=== PATIENT | male | born 1970 | race Caucasian/White ===

== ENCOUNTER 2019-01-03 22:48 | Emergency (ER) | payer SELFPAY ==
[2019-01-03] MEDS ORDERED: PEPCID PO ONE (23:29)
[2019-01-03] MEDS ORDERED: REGLAN PO ONE (23:29)
--- NOTE | 2019-01-03 23:31 | Emergency Department Report ---
ED General Adult HPI - General Chief complaint: Nausea/Vomiting/Diarrhea Stated complaint: POSS SEIZURE/VOMITING Time Seen by Provider: 01/03/19 23:10 Source: patient, EMS, RN notes reviewed Mode of arrival: Ambulatory Limitations: Other (patient is a poor historian) - History of Present Illness Initial comments: This is a 48-year-old gentleman, who reports a history of traumatic brain injury, blind in the right eye, possible seizure, who believes that he takes phenytoin, but is not certain. He is brought to the hospital today by emergency medical services for sensation of breaking that he will have a seizure, and sensation of nausea. The patient indicates that he believes his symptoms started today. He is currently not having a severe headache, he has no neck pain, no chest pain, positive cough, abdominal cramping, positive nausea, reports dysuria, with no focal extremity weakness, numbness. The patient cannot recall medications he takes otherwise, and has a difficult time describing exacerbating or relieving factors. He apparently lives at a personal nursing home. No family, friends available for collateral information at this time. The personal nursing home was contacted 3 times by nursing staff, but nobody answered the phone. -: This evening Location: head, abdomen Quality: other Consistency: other Improves with: other - Related Data Previous Rx's Medication Instructions Recorded Last Taken Type Nitrofurantoin [place]/M-Cryst 100 mg PO Q12HR #14 capsule 01/04/19 Unknown Rx [Macrobid CAP] Allergies Allergy/AdvReac Type Severity Reaction Status Date / Time No Known Allergies Allergy Unverified 01/03/19 22:59 ED Review of Systems ROS: Stated complaint: POSS SEIZURE/VOMITING Other details as noted in HPI Comment: Unobtainable due to pts medical conditions (patient is a poor historian) Constitutional: malaise. denies: fever Eyes: denies: eye discharge ENT: denies: epistaxis Respiratory: cough Cardiovascular: denies: chest pain Gastrointestinal: abdominal pain, nausea Genitourinary: dysuria Musculoskeletal: denies: arthralgia Skin: denies: lesions Neurological: other (sensation like the patient will have a seizure) ED Past Medical Hx - Past Medical History Previous Medical History?: Yes Hx CVA: Yes (right sided weakness) Hx Diabetes: Yes Hx Seizures: Yes - Surgical History Past Surgical History?: Yes Additional Surgical History: head surgery - Social History Smoking Status: Current Some Day Smoker Substance Use Type: Alcohol - Medications Home Medications: Home Medications Medication Instructions Recorded Confirmed Last Taken Type Nitrofurantoin [place]/M-Cryst 100 mg PO Q12HR #14 capsule 01/04/19 Unknown Rx [Macrobid CAP] ED Physical Exam - General Limitations: Other (patient is a poor historian. Questionable developmental delay versus posttraumatic cognitive deficits) General appearance: alert, in no apparent distress - Head Head exam: Present: other (no acute traumatic injuries noted. Chronic-appearing deformities, consistent with remote history of traumatic brain injury) - Eye Eye exam: Present: PERRL, other (visual acuity intact to finger counting, color perception, reading at a close distance; left eye) - ENT ENT exam: Present: normal exam, normal orophraynx, mucous membranes moist, normal external ear exam - Neck Neck exam: Present: normal inspection, full ROM. Absent: tenderness, meningismus - Respiratory Respiratory exam: Present: normal lung sounds bilaterally. Absent: respiratory distress, wheezes, rales, rhonchi, stridor - Cardiovascular Cardiovascular Exam: Present: regular rate, normal rhythm, normal heart sounds. Absent: bradycardia, tachycardia, systolic murmur, diastolic murmur, rubs, gallop - GI/Abdominal GI/Abdominal exam: Present: soft. Absent: distended, tenderness, guarding, rebound, pulsatile mass - Rectal Rectal exam: Present: deferred - Extremities Exam Extremities exam: Present: normal inspection, full ROM, normal capillary refill, other (2+ pulses noted in the bilateral upper, lower extremities. Compartments soft. No long bony tenderness. The pelvis is stable.). Absent: calf tenderness - Back Exam Back exam: Present: normal inspection, full ROM. Absent: tenderness, CVA tenderness (R), paraspinal tenderness, vertebral tenderness - Neurological Exam Neurological exam: Present: alert, normal gait, other (Extraocular movements intact. Tongue midline. No facial droop. Facial sensation intact to light touch in the V1, V2, V3 distribution bilaterally. 5 and 5 strength in 4 extremities.. Sensation is intact to light touch in 4 extremities.). Absent: motor sensory deficit - Skin Skin exam: Present: warm, dry, intact, normal color. Absent: rash ED Course Vital Signs 01/03/19 01/04/19 01/04/19 22:59 00:00 01:00 Temperature 98.2 F Pulse Rate 83 89 70 Respiratory 20 13 14 Rate Blood Pressure 132/72 129/69 131/79 Blood Pressure 132/72 [Left] O2 Sat by Pulse 99 95 95 Oximetry 01/04/19 02:00 Temperature Pulse Rate 78 Respiratory 12 Rate Blood Pressure 131/79 Blood Pressure [Left] O2 Sat by Pulse 97 Oximetry ED Medical Decision Making - Lab Data Result diagrams: 01/03/19 23:34 01/03/19 23:34 Vital Signs 01/03/19 01/04/19 01/04/19 22:59 00:00 01:00 Temperature 98.2 F Pulse Rate 83 89 70 Respiratory 20 13 14 Rate Blood Pressure 132/72 129/69 131/79 Blood Pressure 132/72 [Left] O2 Sat by Pulse 99 95 95 Oximetry Lab Results 01/03/19 01/03/19 01/03/19 Range/Units 23:34 23:34 23:34 WBC 13.5 H (4.5-11.0) K/mm3 RBC 4.88 (3.65-5.03) M/mm3 Hgb 15.9 H (11.8-15.2) gm/dl Hct 45.0 (35.5-45.6) % MCV 92 (84-94) fl MCH 33 H (28-32) pg MCHC 35 H (32-34) % RDW 13.0 L (13.2-15.2) % Plt Count 350 (140-440) K/mm3 Sodium 136 L (137-145) mmol/L Potassium 4.1 (3.6-5.0) mmol/L Chloride 98.4 (98-107) mmol/L Carbon Dioxide 29 (22-30) mmol/L Anion Gap 13 mmol/L BUN 14 (9-20) mg/dL Creatinine 0.6 L (0.8-1.5) mg/dL Estimated GFR > 60 ml/min BUN/Creatinine Ratio 23 % Glucose 126 H (75-100) mg/dL Calcium 8.8 (8.4-10.2) mg/dL Total Bilirubin 0.30 (0.1-1.2) mg/dL Direct Bilirubin < 0.2 (0-0.2) mg/dL Indirect Bilirubin 0.1 mg/dL AST 24 (5-40) units/L ALT 27 (7-56) units/L Alkaline Phosphatase 127 (35-129) units/L Total Creatine Kinase 448 H (55-170) units/L Total Protein 7.4 (6.3-8.2) g/dL Albumin 4.3 (3.9-5) g/dL Albumin/Globulin Ratio 1.4 % Lipase 19 (13-60) units/L Urine Color (Yellow) Urine Turbidity (Clear) Urine pH (5.0-7.0) Ur Specific [place] (1.003-1.030) Urine Protein (Negative) mg/dL Urine Glucose (UA) (Negative) mg/dL Urine Ketones (Negative) mg/dL Urine Blood (Negative) Urine Nitrite (Negative) Urine Bilirubin (Negative) Urine Urobilinogen (<2.0) mg/dL Ur Leukocyte Esterase (Negative) Urine WBC (Auto) (0.0-6.0) /HPF Urine RBC (Auto) (0.0-6.0) /HPF U Epithel Cells (Auto) (0-13.0) /HPF Urine Bacteria (Auto) (Negative) /HPF Urine Mucus /HPF Salicylates (2.8-20.0) mg/dL Acetaminophen (10.0-30.0) ug/mL Phenytoin (10.0-20.0) ug/mL Valproic Acid (50-100) ug/mL Plasma/Serum Alcohol (0-0.07) % 01/03/19 01/03/19 01/03/19 Range/Units 23:34 23:34 23:34 WBC (4.5-11.0) K/mm3 RBC (3.65-5.03) M/mm3 Hgb (11.8-15.2) gm/dl Hct (35.5-45.6) % MCV (84-94) fl MCH (28-32) pg MCHC (32-34) % RDW (13.2-15.2) % Plt Count (140-440) K/mm3 Sodium (137-145) mmol/L Potassium (3.6-5.0) mmol/L Chloride (98-107) mmol/L Carbon Dioxide (22-30) mmol/L Anion Gap mmol/L BUN (9-20) mg/dL Creatinine (0.8-1.5) mg/dL Estimated GFR ml/min BUN/Creatinine Ratio % Glucose (75-100) mg/dL Calcium (8.4-10.2) mg/dL Total Bilirubin (0.1-1.2) mg/dL Direct Bilirubin (0-0.2) mg/dL Indirect Bilirubin mg/dL AST (5-40) units/L ALT (7-56) units/L Alkaline Phosphatase (35-129) units/L Total Creatine Kinase (55-170) units/L Total Protein (6.3-8.2) g/dL Albumin (3.9-5) g/dL Albumin/Globulin Ratio % Lipase (13-60) units/L Urine Color (Yellow) Urine Turbidity (Clear) Urine pH (5.0-7.0) Ur Specific [place] (1.003-1.030) Urine Protein (Negative) mg/dL Urine Glucose (UA) (Negative) mg/dL Urine Ketones (Negative) mg/dL Urine Blood (Negative) Urine Nitrite (Negative) Urine Bilirubin (Negative) Urine Urobilinogen (<2.0) mg/dL Ur Leukocyte Esterase (Negative) Urine WBC (Auto) (0.0-6.0) /HPF Urine RBC (Auto) (0.0-6.0) /HPF U Epithel Cells (Auto) (0-13.0) /HPF Urine Bacteria (Auto) (Negative) /HPF Urine Mucus /HPF Salicylates < 0.3 L (2.8-20.0) mg/dL Acetaminophen < 5.0 L (10.0-30.0) ug/mL Phenytoin 9.8 L (10.0-20.0) ug/mL Valproic Acid < 2.8 L (50-100) ug/mL Plasma/Serum Alcohol 0.18 H (0-0.07) % 01/04/19 Range/Units 00:15 WBC (4.5-11.0) K/mm3 RBC (3.65-5.03) M/mm3 Hgb (11.8-15.2) gm/dl Hct (35.5-45.6) % MCV (84-94) fl MCH (28-32) pg MCHC (32-34) % RDW (13.2-15.2) % Plt Count (140-440) K/mm3 Sodium (137-145) mmol/L Potassium (3.6-5.0) mmol/L Chloride (98-107) mmol/L Carbon Dioxide (22-30) mmol/L Anion Gap mmol/L BUN (9-20) mg/dL Creatinine (0.8-1.5) mg/dL Estimated GFR ml/min BUN/Creatinine Ratio % Glucose (75-100) mg/dL Calcium (8.4-10.2) mg/dL Total Bilirubin (0.1-1.2) mg/dL Direct Bilirubin (0-0.2) mg/dL Indirect Bilirubin mg/dL AST (5-40) units/L ALT (7-56) units/L Alkaline Phosphatase (35-129) units/L Total Creatine Kinase (55-170) units/L Total Protein (6.3-8.2) g/dL Albumin (3.9-5) g/dL Albumin/Globulin Ratio % Lipase (13-60) units/L Urine Color Yellow (Yellow) Urine Turbidity Clear (Clear) Urine pH 6.0 (5.0-7.0) Ur Specific [place] 1.023 (1.003-1.030) Urine Protein 30 mg/dl (Negative) mg/dL Urine Glucose (UA) Neg (Negative) mg/dL Urine Ketones Neg (Negative) mg/dL Urine Blood Mod (Negative) Urine Nitrite Neg (Negative) Urine Bilirubin Neg (Negative) Urine Urobilinogen < 2.0 (<2.0) mg/dL Ur Leukocyte Esterase Lg (Negative) Urine WBC (Auto) 10.0 H (0.0-6.0) /HPF Urine RBC (Auto) 39.0 (0.0-6.0) /HPF U Epithel Cells (Auto) 1.0 (0-13.0) /HPF Urine Bacteria (Auto) 1+ (Negative) /HPF Urine Mucus Few /HPF Salicylates (2.8-20.0) mg/dL Acetaminophen (10.0-30.0) ug/mL Phenytoin (10.0-20.0) ug/mL Valproic Acid (50-100) ug/mL Plasma/Serum Alcohol (0-0.07) % - EKG Data -: EKG Interpreted by Sd EKG shows normal: sinus rhythm, axis, intervals, QRS complexes, ST-T waves - EKG Data When compared to previous EKG there are: previous EKG unavailable 01/04/19 01:55 Sinus, 73 bpm, normal axis, normal pulse, not consistent with ST elevation myocardial infarction, there is no prior EKG available for comparison. - Radiology Data Radiology results: report reviewed, image reviewed Noncontrast CT scan of the brain is negative for acute disease. Chronic findings noted. X-ray the chest is negative for acute disease. Noncontrast CT scan of the abdomen pelvis negative for acute disease. - Medical Decision Making Differential diagnosis, including but not limited to: Medication noncompliance, subtherapeutic antiepileptic drug level, pneumonia, urinary tract infection Assessment and plan: 48-year-old gentleman who is a poor historian who reports nausea, reports dysuria, and he reports possible seizure. The patient is afebrile with reassuring vital signs, and not currently in any distress. He walks with a steady gait, his abdominal exam is benign, his pulmonary exam is benign, and x-ray of the chest was negative for acute disease. Noncontrast CT scan of the brain was negative for acute disease. The patient is observed in the emergency room for hours without clinical decompensation, active vomiting, or convulsive event or seizure. We tried multiple times to contact his care facility, but nobody answered the phone. He may have a slowly subtherapeutic phenytoin level. He was given oral phenytoin. He does not appear to have an emergent medical condition at this time. He will need to follow with a primary care doctor or neurologist to address his urinalysis, and presumed subtherapeutic antiepileptic drug level. Since we do not know what dose he takes, it is difficult to make a recommendation on a prescription. He does not know what pharmacy he gets his prescriptions from. He will be covered with Macrobid empirically. Critical care attestation.: If time is entered above; I have spent that time in minutes in the direct care of this critically ill patient, excluding procedure time. ED Disposition Clinical Impression: History of seizure Disposition: DC-01 TO HOME OR SELFCARE Is pt being admited?: No Does the pt Need Aspirin: No Condition: Stable Additional Instructions: Do not drive or operate motor vehicles for the next 6 months. Take the Macrobid antibiotic as directed. Follow up with the primary care doctor or neurology doctor within the next 3-7 days, and bring a complete list of patient's's with the patient, so that the provider may make informed recommendations on medications, doses, and adjustments if necessary. Please return to the ER right away with new, worsening or different symptoms. Referrals: [facility] [Provider Group] - 3-5 Days HOWARD TORRES MD [Referring] - 3-5 Days AGATHA SHEARER MD [Staff Physician] - 3-5 Days MARIAM HUGGINS MD [Staff Physician] - 3-5 Days
[2019-01-03 23:53] LABS: Hemoglobin 15.9 gm/dl (11.8-15.2); Mean Corpuscular HGB Conc 35 % (32-34); Mean Corpuscular Volume 92 fl (84-94); Platelet Count 350 K/mm3 (140-440); Red Blood Count 4.88 M/mm3 (3.65-5.03)
--- NOTE | 2019-01-03 23:55 | XRay Report ---
FINAL REPORT EXAM: XR CHEST 1V AP HISTORY: sz cough TECHNIQUE: upright single view chest PRIORS: None. FINDINGS: Cardiac and mediastinal contours are unremarkable. No focal pulmonary infiltrate is identified. No pleural fluid collection seen. Pulmonary vasculature is unremarkable. IMPRESSION: Negative single-view chest
[2019-01-04 00:09] LABS: BUN/Creatinine Ratio 23; Blood Urea Nitrogen 14 mg/dL (9-20); Calcium 8.8 mg/dL (8.4-10.2); Hemolysis Index 5
[2019-01-04 00:13] LABS: Alanine Aminotransferase 27 units/L (7-56); Albumin 4.3 g/dL (3.9-5)
[2019-01-04 00:16] LABS: Bilirubin,Direct < 0.2 mg/dL (0-0.2)
[2019-01-04] MEDS ORDERED: DILANTIN PO ONE (00:21)
[2019-01-04 00:32] LABS: Bacteria,Urine 1+ /HPF (Negative); Bilirubin,Urine NEG (Negative); Blood,Urine MOD (Negative); Color,Urine Yellow (Yellow); Mucus,Urine FEW /HPF; Urobilinogen,Urine < 2.0 mg/dL (<2.0)
--- NOTE | 2019-01-04 01:02 | Cat Scan Report ---
FINAL REPORT EXAM: CT HEAD/BRAIN WO CON HISTORY: Seizure, headache. History of TBI. OD Blind. TECHNIQUE: Non-contrast CT brain. MPR. Overall image quality is satisfactory. PRIORS: None. FINDINGS: COMMENTS: BONE - Soft tissues: Mild bifrontal supraorbital soft tissue swelling. Calvarium: Right-sided frontoparietal craniectomy changes are present. Temporal mastoids: No effusion Included paranasal sinuses: Well aerated and without air-fluid levels. Intracranial vascular calcifications. CSF SPACES - Ventricles: Right greater than left ex vacuo dilatation of the ventricles. Subarachnoid spaces: Prominent. BRAIN - There is marked right greater than left frontal lobe gliosis/volume loss suggestive of prior trauma o r infarction. No acute intracranial bleed, large vessel territory infarct or mass. IMPRESSION: 1. No acute intracranial pathology. 2. Postsurgical changes from prior right frontoparietal craniectomy with severe gliosis/volume loss w ithin the right greater than left frontal lobe white matter and concomitant enlargement of the latera l ventricles. RECOMMENDATION: if concern for acute ischemia, diffusion weighted imaging of the brain can further ev aluate.
[2019-01-04 01:07] VITALS: BP 131/79
--- NOTE | 2019-01-04 01:10 | Cat Scan Report ---
FINAL REPORT EXAM: CT ABDOMEN PELVIS WO CON HISTORY: Abdominal pain with nausea and vomiting. TECHNIQUE: CT evaluation performed of the abdomen and pelvis without IV or oral contrast administrat ion. Coronal and sagittal imaging also provided for interpretation. PRIORS: None. FINDINGS: Lower thorax: The lung bases are clear. The visualized portions of the heart are normal. Liver: No focal lesions identified of the liver. No intrahepatic biliary ductal dilation. Gallbladder/ biliary system: No cholelithiasis. No extrahepatic biliary ductal dilation. Spleen: No splenic lesions are seen. Pancreas: No pancreatic lesions are seen. No pancreatic duct dilation. Kidneys: No hydronephrosis. No ureteral or renal calcifications. Adrenal glands: No adrenal masses. Vasculature: Mild atherosclerotic vascular calcifications in the aortoiliac system. Bowel, mesentery, peritoneum: No bowel obstruction. Mild colonic diverticulosis. The appendix is norm al. No free intra-abdominal fluid or air. Urinary bladder: No calculi or wall thickening. Pelvis: Normal anatomy is noted. No masses. Abdominal wall: Small bilateral fat containing inguinal hernias. Marked atrophy of the left gluteus m edius and right gluteus minimus musculature. Bones: No acute osseous abnormality. There is bilateral spondylolysis at L5 with grade 1 spondylolist hesis. Vertebral body heights are maintained. Multilevel endplate degenerative changes are present. T here is moderate neural foraminal narrowing at L5-S1 bilaterally. IMPRESSION: No noncontrast CT evidence of acute abdominopelvic process. Chronic findings as itemized above.
== END 2019-01-04 03:22 | disposition home or self-care (01) ==
LOC: ED 22:48
DX: R56.9 Unspecified convulsions (principal); E11.9 Type 2 diabetes mellitus without complications; F17.200 Nicotine dependence, unspecified, uncomplicated; R10.9 Unspecified abdominal pain
CPT/HCPCS: 36415; 70450; 71045; 74176; 80048; 80076; 80164; 80185; 81001; 82550; 83690; 85027; 93005; 93010; 99285; G0480; 80320

== ENCOUNTER 2019-10-15 05:19 | Inpatient (IN) | payer MEDICAID ==
[2019-10-15] MEDS ORDERED: levETIRAcetam 1000 MG/NS 0.75% 1,000 MG/100 ML BAG IV ONE (05:29)
[2019-10-15] MEDS ORDERED: LORazepam 2 MG/ML VIAL IV ONE ×4 (05:29→10:21)
--- NOTE | 2019-10-15 05:32 | Emergency Department Report ---
Blank Doc - Documentation Documentation: 49-year-old male with a past medical history of seizures from [place] with p resentation for seizures. Someone at the facility heard patient fall and found him on the ground in the closet postictal. He was removed from the closet then had a second seizure. He had a third seizure in route and a fourth seizure after arrival to the ED. Patient has remained post ictal. No meds given in route. Patient has Keppra pill bottles at the scene. Accu-Chek in the 160s as per EMS. Labs ordered including IV access, monitor, supplemental oxygen when necessary. Patient treated in the ED with Ativan 1 mg and IV Keppra ordered. CT head and cervical spine pending. Patient to be seen by further by oncoming provider.
--- NOTE | 2019-10-15 06:15 | Emergency Department Report ---
ED General Adult HPI - General Stated complaint: SEZURE Time Seen by Provider: 10/15/19 05:45 - History of Present Illness Initial comments: The patient presents to the emergency department via EMS from [place] for seizure activity. Patient has a history of seizures and takes Dilantin. This morning the patient was found in a closet seizing and continued to have seizures in route to the hospital. Reportedly the patient had multiple scrapes to the head from a seizure activity. The patient arrived having seizure activity as well. -: Sudden Location: head Improves with: none Worsens with: none Associated Symptoms: denies other symptoms Treatments Prior to Arrival: none - Related Data Home Medications Medication Instructions Recorded Confirmed Last Taken Phenytoin Sodium Extended 200 mg PO 10/15/19 Unknown Sertraline HCl [Zoloft] 50 mg PO 10/15/19 Unknown Allergies Allergy/AdvReac Type Severity Reaction Status Date / Time No Known Allergies Allergy Unverified 01/03/19 22:59 ED Review of Systems ROS: Stated complaint: SEZURE Other details as noted in HPI Comment: Unobtainable due to pts medical conditions ED Past Medical Hx - Past Medical History Hx CVA: Yes (right sided weakness) Hx Diabetes: Yes Hx Seizures: Yes - Surgical History Additional Surgical History: head surgery - Social History Smoking Status: Current Some Day Smoker Substance Use Type: Alcohol - Medications Home Medications: Home Medications Medication Instructions Recorded Confirmed Last Taken Type Phenytoin Sodium Extended 200 mg PO 10/15/19 Unknown History Sertraline HCl [Zoloft] 50 mg PO 10/15/19 Unknown History ED Physical Exam - General General appearance: obtunded, other (seizing) - Head Head exam: Present: other (bruising and ecchymosis) - Eye Eye exam: Present: normal appearance, PERRL, EOMI - ENT ENT exam: Present: mucous membranes dry - Neck Neck exam: Present: normal inspection - Respiratory Respiratory exam: Present: normal lung sounds bilaterally. Absent: respiratory distress, wheezes, rales - Cardiovascular Cardiovascular Exam: Present: normal rhythm, tachycardia - GI/Abdominal GI/Abdominal exam: Present: soft, normal bowel sounds. Absent: distended, tenderness - Extremities Exam Extremities exam: Present: normal inspection - Back Exam Back exam: Present: normal inspection - Neurological Exam Neurological exam: Present: other (actively seizing) - Psychiatric Psychiatric exam: Present: other (not able to assess secondary to patient's condition ) - Skin Skin exam: Present: other (not able to assess due to patient's condition) ED Course Vital Signs 10/15/19 10/15/19 10/15/19 05:26 05:30 05:46 Temperature Temperature [ Intra-Procedure ] Temperature [ Post-Procedure] Temperature [ Pre-Procedure] Pulse Rate 125 H 128 H Pulse Rate [ Intra-Procedure ] Pulse Rate [ Post-Procedure] Pulse Rate [Pre -Procedure] Respiratory 21 19 Rate Respiratory Rate [Intra- Procedure] Respiratory Rate [Post- Procedure] Respiratory Rate [Pre- Procedure] Blood Pressure 176/82 176/82 Blood Pressure [Intra- Procedure] Blood Pressure [Post-Procedure ] Blood Pressure [Pre-Procedure] Blood Pressure [Right] O2 Sat by Pulse 79 L 98 96 Oximetry O2 Sat by Pulse Oximetry [ Intra-Procedure ] O2 Sat by Pulse Oximetry [Post -Procedure] O2 Sat by Pulse Oximetry [Pre- Procedure] 10/15/19 10/15/19 10/15/19 06:00 06:21 06:30 Temperature 99.6 F Temperature [ Intra-Procedure ] Temperature [ Post-Procedure] Temperature [ Pre-Procedure] Pulse Rate 120 H 113 H 115 H Pulse Rate [ Intra-Procedure ] Pulse Rate [ Post-Procedure] Pulse Rate [Pre -Procedure] Respiratory 18 15 16 Rate Respiratory Rate [Intra- Procedure] Respiratory Rate [Post- Procedure] Respiratory Rate [Pre- Procedure] Blood Pressure 140/81 Blood Pressure [Intra- Procedure] Blood Pressure [Post-Procedure ] Blood Pressure [Pre-Procedure] Blood Pressure 151/102 [Right] O2 Sat by Pulse 100 100 100 Oximetry O2 Sat by Pulse Oximetry [ Intra-Procedure ] O2 Sat by Pulse Oximetry [Post -Procedure] O2 Sat by Pulse Oximetry [Pre- Procedure] 10/15/19 10/15/19 10/15/19 06:31 06:45 07:00 Temperature Temperature [ Intra-Procedure ] Temperature [ Post-Procedure] Temperature [ Pre-Procedure] Pulse Rate 117 H 115 H 116 H Pulse Rate [ Intra-Procedure ] Pulse Rate [ Post-Procedure] Pulse Rate [Pre -Procedure] Respiratory 16 18 18 Rate Respiratory Rate [Intra- Procedure] Respiratory Rate [Post- Procedure] Respiratory Rate [Pre- Procedure] Blood Pressure 151/102 153/102 146/102 Blood Pressure [Intra- Procedure] Blood Pressure [Post-Procedure ] Blood Pressure [Pre-Procedure] Blood Pressure [Right] O2 Sat by Pulse 100 100 100 Oximetry O2 Sat by Pulse Oximetry [ Intra-Procedure ] O2 Sat by Pulse Oximetry [Post -Procedure] O2 Sat by Pulse Oximetry [Pre- Procedure] 10/15/19 10/15/19 10/15/19 07:15 07:31 07:45 Temperature Temperature [ Intra-Procedure ] Temperature [ Post-Procedure] Temperature [ Pre-Procedure] Pulse Rate 119 H 113 H 118 H Pulse Rate [ Intra-Procedure ] Pulse Rate [ Post-Procedure] Pulse Rate [Pre -Procedure] Respiratory 19 15 21 Rate Respiratory Rate [Intra- Procedure] Respiratory Rate [Post- Procedure] Respiratory Rate [Pre- Procedure] Blood Pressure 158/106 158/106 158/106 Blood Pressure [Intra- Procedure] Blood Pressure [Post-Procedure ] Blood Pressure [Pre-Procedure] Blood Pressure [Right] O2 Sat by Pulse 100 100 98 Oximetry O2 Sat by Pulse Oximetry [ Intra-Procedure ] O2 Sat by Pulse Oximetry [Post -Procedure] O2 Sat by Pulse Oximetry [Pre- Procedure] 10/15/19 10/15/19 10/15/19 08:00 08:04 08:06 Temperature 102.8 F H Temperature [ Intra-Procedure ] Temperature [ Post-Procedure] Temperature [ Pre-Procedure] Pulse Rate 115 H Pulse Rate [ Intra-Procedure ] Pulse Rate [ Post-Procedure] Pulse Rate [Pre -Procedure] Respiratory 19 16 Rate Respiratory Rate [Intra- Procedure] Respiratory Rate [Post- Procedure] Respiratory Rate [Pre- Procedure] Blood Pressure 165/107 Blood Pressure [Intra- Procedure] Blood Pressure [Post-Procedure ] Blood Pressure [Pre-Procedure] Blood Pressure [Right] O2 Sat by Pulse 100 98 Oximetry O2 Sat by Pulse Oximetry [ Intra-Procedure ] O2 Sat by Pulse Oximetry [Post -Procedure] O2 Sat by Pulse Oximetry [Pre- Procedure] 10/15/19 10/15/19 10/15/19 08:15 08:31 08:45 Temperature Temperature [ Intra-Procedure ] Temperature [ Post-Procedure] Temperature [ Pre-Procedure] Pulse Rate 107 H 133 H 114 H Pulse Rate [ Intra-Procedure ] Pulse Rate [ Post-Procedure] Pulse Rate [Pre -Procedure] Respiratory 17 18 16 Rate Respiratory Rate [Intra- Procedure] Respiratory Rate [Post- Procedure] Respiratory Rate [Pre- Procedure] Blood Pressure 165/107 165/107 144/85 Blood Pressure [Intra- Procedure] Blood Pressure [Post-Procedure ] Blood Pressure [Pre-Procedure] Blood Pressure [Right] O2 Sat by Pulse 100 94 Oximetry O2 Sat by Pulse Oximetry [ Intra-Procedure ] O2 Sat by Pulse Oximetry [Post -Procedure] O2 Sat by Pulse Oximetry [Pre- Procedure] 10/15/19 10/15/19 10/15/19 09:01 09:15 09:30 Temperature Temperature [ Intra-Procedure ] Temperature [ Post-Procedure] Temperature [ Pre-Procedure] Pulse Rate 114 H 114 H 120 H Pulse Rate [ Intra-Procedure ] Pulse Rate [ Post-Procedure] Pulse Rate [Pre -Procedure] Respiratory 32 H 22 18 Rate Respiratory Rate [Intra- Procedure] Respiratory Rate [Post- Procedure] Respiratory Rate [Pre- Procedure] Blood Pressure 144/85 144/85 144/91 Blood Pressure [Intra- Procedure] Blood Pressure [Post-Procedure ] Blood Pressure [Pre-Procedure] Blood Pressure [Right] O2 Sat by Pulse 100 100 99 Oximetry O2 Sat by Pulse Oximetry [ Intra-Procedure ] O2 Sat by Pulse Oximetry [Post -Procedure] O2 Sat by Pulse Oximetry [Pre- Procedure] 10/15/19 10/15/19 10/15/19 09:45 09:54 11:05 Temperature 102.6 F H Temperature [ Intra-Procedure ] Temperature [ Post-Procedure] Temperature [ 102.6 F H Pre-Procedure] Pulse Rate 130 H Pulse Rate [ Intra-Procedure ] Pulse Rate [ Post-Procedure] Pulse Rate [Pre 114 H -Procedure] Respiratory 19 Rate Respiratory Rate [Intra- Procedure] Respiratory Rate [Post- Procedure] Respiratory 16 Rate [Pre- Procedure] Blood Pressure 144/91 Blood Pressure [Intra- Procedure] Blood Pressure [Post-Procedure ] Blood Pressure 107/62 [Pre-Procedure] Blood Pressure [Right] O2 Sat by Pulse 96 Oximetry O2 Sat by Pulse Oximetry [ Intra-Procedure ] O2 Sat by Pulse Oximetry [Post -Procedure] O2 Sat by Pulse 100 Oximetry [Pre- Procedure] 10/15/19 10/15/19 10/15/19 11:22 11:27 11:30 Temperature Temperature [ 102.6 F H 102.6 F H Intra-Procedure ] Temperature [ 102.6 F H Post-Procedure] Temperature [ Pre-Procedure] Pulse Rate Pulse Rate [ 96 H 105 H Intra-Procedure ] Pulse Rate [ 105 H Post-Procedure] Pulse Rate [Pre -Procedure] Respiratory Rate Respiratory 16 16 Rate [Intra- Procedure] Respiratory 16 Rate [Post- Procedure] Respiratory Rate [Pre- Procedure] Blood Pressure Blood Pressure 120/76 131/72 [Intra- Procedure] Blood Pressure 124/80 [Post-Procedure ] Blood Pressure [Pre-Procedure] Blood Pressure [Right] O2 Sat by Pulse Oximetry O2 Sat by Pulse 100 Oximetry [ Intra-Procedure ] O2 Sat by Pulse 100 Oximetry [Post -Procedure] O2 Sat by Pulse Oximetry [Pre- Procedure] 10/15/19 10/15/19 10/15/19 11:50 12:05 12:42 Temperature 101.2 F H Temperature [ Intra-Procedure ] Temperature [ 102.6 F H Post-Procedure] Temperature [ Pre-Procedure] Pulse Rate 110 H 107 H Pulse Rate [ Intra-Procedure ] Pulse Rate [ 114 H Post-Procedure] Pulse Rate [Pre -Procedure] Respiratory 18 16 Rate Respiratory Rate [Intra- Procedure] Respiratory 18 Rate [Post- Procedure] Respiratory Rate [Pre- Procedure] Blood Pressure Blood Pressure [Intra- Procedure] Blood Pressure 121/72 [Post-Procedure ] Blood Pressure [Pre-Procedure] Blood Pressure 126/80 124/70 [Right] O2 Sat by Pulse 100 100 Oximetry O2 Sat by Pulse Oximetry [ Intra-Procedure ] O2 Sat by Pulse 100 Oximetry [Post -Procedure] O2 Sat by Pulse Oximetry [Pre- Procedure] - Central Line Placement Right Femoral Consent Obtained: written consent, emergent situation Time Out Performed: Yes Patient Placed on Monitor/Pulse Ox: Yes Prep: mask, gown, gloves Central Line Prep: Povidone-Iodine 1%, Chlorhexidine scrub Local Anesthesia Used: Lidocaine 1% Ultrasound Used for Placement: No Central Line Lumen Inserted: triple Bloods Obtained for Lab: Yes Central Line Position: good blood return, all ports aspirated, flus, sutured in place with 2-0 Dressing Applied: Tegaderm, sterile gauze/tape Patient Tolerated Procedure: well Complications: none - Lumbar Puncture Consent Obtained: written consent, emergent situation Time Out Performed: Yes Indication for Procedure: change in mental status Patient Position: right lateral decubitus Skin Prep: 0.5%Chlorhexidine/alcohol Local Anesthetic Used: Lidocaine 1% Spinal Needle Gauge: 20G Spinal Needle Length: 1.5in Interspace Used: L3-L4 Fluid Initially Obtained: cloudy, bloody Complications: none Patient Tolerated Procedure: well ED Medical Decision Making - Lab Data Result diagrams: 10/15/19 06:00 10/15/19 06:00 Lab Results 10/15/19 10/15/19 10/15/19 Range/Units 06:00 06:00 06:00 WBC 13.7 H (4.5-11.0) K/mm3 RBC 5.29 H (3.65-5.03) M/mm3 Hgb 16.7 H (11.8-15.2) gm/dl Hct 50.3 H (35.5-45.6) % MCV 95 H (84-94) fl MCH 32 (28-32) pg MCHC 33 (32-34) % RDW 14.0 (13.2-15.2) % Plt Count 281 (140-440) K/mm3 Lymph % (Auto) 4.6 L (13.4-35.0) % Miller % (Auto) 10.2 H (0.0-7.3) % Eos % (Auto) 0.1 (0.0-4.3) % Baso % (Auto) 0.2 (0.0-1.8) % Lymph # 0.6 L (1.2-5.4) K/mm3 Miller # 1.4 H (0.0-0.8) K/mm3 Eos # 0.0 (0.0-0.4) K/mm3 Baso # 0.0 (0.0-0.1) K/mm3 Seg Neutrophils % 84.9 H (40.0-70.0) % Seg Neutrophils # 11.6 H (1.8-7.7) K/mm3 Sodium 148 H (137-145) mmol/L Potassium 4.5 (3.6-5.0) mmol/L Chloride 108.9 H (98-107) mmol/L Carbon Dioxide 17 L (22-30) mmol/L Anion Gap 27 mmol/L BUN 21 H (9-20) mg/dL Creatinine 1.3 (0.8-1.5) mg/dL Estimated GFR 59 ml/min BUN/Creatinine Ratio 16 % Glucose 137 H (75-100) mg/dL Lactic Acid (0.7-2.0) mmol/L Calcium 9.6 (8.4-10.2) mg/dL Magnesium 2.60 H (1.7-2.3) mg/dL Urine Color (Yellow) Urine Turbidity (Clear) Urine pH (5.0-7.0) Ur Specific [place] (1.003-1.030) Urine Protein (Negative) mg/dL Urine Glucose (UA) (Negative) mg/dL Urine Ketones (Negative) mg/dL Urine Blood (Negative) Urine Nitrite (Negative) Urine Bilirubin (Negative) Urine Urobilinogen (<2.0) mg/dL Ur Leukocyte Esterase (Negative) Urine WBC (Auto) (0.0-6.0) /HPF Urine RBC (Auto) (0.0-6.0) /HPF U Epithel Cells (Auto) (0-13.0) /HPF Urine Bacteria (Auto) (Negative) /HPF Hyaline Casts /LPF Urine Mucus /HPF CSF Appearance CSF Color CSF WBC (1-10) /mm3 CSF RBC (0-0) /mm3 CSF Seg Neutrophils (0-6) % CSF Lymphocytes % (40-80) % CSF Reactive Lymphs % CSF Monocytes % (15-45) % CSF Eosinophils % % CSF Basophils % CSF Pathologist Review CSF Glucose mg/dL CSF Total Protein mg/dL Urine Opiates Screen Urine Methadone Screen Ur Barbiturates Screen Phenytoin (10.0-20.0) ug/mL Ur Phencyclidine Scrn Ur Amphetamines Screen U Benzodiazepines Scrn Urine Cocaine Screen U Marijuana (THC) Screen Drugs of Abuse Note Plasma/Serum Alcohol < 0.01 (0-0.07) % 10/15/19 10/15/19 10/15/19 Range/Units 06:05 08:49 10:45 WBC (4.5-11.0) K/mm3 RBC (3.65-5.03) M/mm3 Hgb (11.8-15.2) gm/dl Hct (35.5-45.6) % MCV (84-94) fl MCH (28-32) pg MCHC (32-34) % RDW (13.2-15.2) % Plt Count (140-440) K/mm3 Lymph % (Auto) (13.4-35.0) % Miller % (Auto) (0.0-7.3) % Eos % (Auto) (0.0-4.3) % Baso % (Auto) (0.0-1.8) % Lymph # (1.2-5.4) K/mm3 Miller # (0.0-0.8) K/mm3 Eos # (0.0-0.4) K/mm3 Baso # (0.0-0.1) K/mm3 Seg Neutrophils % (40.0-70.0) % Seg Neutrophils # (1.8-7.7) K/mm3 Sodium (137-145) mmol/L Potassium (3.6-5.0) mmol/L Chloride (98-107) mmol/L Carbon Dioxide (22-30) mmol/L Anion Gap mmol/L BUN (9-20) mg/dL Creatinine (0.8-1.5) mg/dL Estimated GFR ml/min BUN/Creatinine Ratio % Glucose (75-100) mg/dL Lactic Acid 1.10 (0.7-2.0) mmol/L Calcium (8.4-10.2) mg/dL Magnesium (1.7-2.3) mg/dL Urine Color (Yellow) Urine Turbidity (Clear) Urine pH (5.0-7.0) Ur Specific [place] (1.003-1.030) Urine Protein (Negative) mg/dL Urine Glucose (UA) (Negative) mg/dL Urine Ketones (Negative) mg/dL Urine Blood (Negative) Urine Nitrite (Negative) Urine Bilirubin (Negative) Urine Urobilinogen (<2.0) mg/dL Ur Leukocyte Esterase (Negative) Urine WBC (Auto) (0.0-6.0) /HPF Urine RBC (Auto) (0.0-6.0) /HPF U Epithel Cells (Auto) (0-13.0) /HPF Urine Bacteria (Auto) (Negative) /HPF Hyaline Casts /LPF Urine Mucus /HPF CSF Appearance CSF Color CSF WBC (1-10) /mm3 CSF RBC (0-0) /mm3 CSF Seg Neutrophils (0-6) % CSF Lymphocytes % (40-80) % CSF Reactive Lymphs % CSF Monocytes % (15-45) % CSF Eosinophils % % CSF Basophils % CSF Pathologist Review CSF Glucose 102 mg/dL CSF Total Protein 166 mg/dL Urine Opiates Screen Urine Methadone Screen Ur Barbiturates Screen Phenytoin 8.8 L (10.0-20.0) ug/mL Ur Phencyclidine Scrn Ur Amphetamines Screen U Benzodiazepines Scrn Urine Cocaine Screen U Marijuana (THC) Screen Drugs of Abuse Note Plasma/Serum Alcohol (0-0.07) % 10/15/19 10/15/19 10/15/19 Range/Units 10:45 Unknown Unknown WBC (4.5-11.0) K/mm3 RBC (3.65-5.03) M/mm3 Hgb (11.8-15.2) gm/dl Hct (35.5-45.6) % MCV (84-94) fl MCH (28-32) pg MCHC (32-34) % RDW (13.2-15.2) % Plt Count (140-440) K/mm3 Lymph % (Auto) (13.4-35.0) % Miller % (Auto) (0.0-7.3) % Eos % (Auto) (0.0-4.3) % Baso % (Auto) (0.0-1.8) % Lymph # (1.2-5.4) K/mm3 Miller # (0.0-0.8) K/mm3 Eos # (0.0-0.4) K/mm3 Baso # (0.0-0.1) K/mm3 Seg Neutrophils % (40.0-70.0) % Seg Neutrophils # (1.8-7.7) K/mm3 Sodium (137-145) mmol/L Potassium (3.6-5.0) mmol/L Chloride (98-107) mmol/L Carbon Dioxide (22-30) mmol/L Anion Gap mmol/L BUN (9-20) mg/dL Creatinine (0.8-1.5) mg/dL Estimated GFR ml/min BUN/Creatinine Ratio % Glucose (75-100) mg/dL Lactic Acid (0.7-2.0) mmol/L Calcium (8.4-10.2) mg/dL Magnesium (1.7-2.3) mg/dL Urine Color Yellow (Yellow) Urine Turbidity Clear (Clear) Urine pH 5.0 (5.0-7.0) Ur Specific [place] 1.018 (1.003-1.030) Urine Protein 30 mg/dl (Negative) mg/dL Urine Glucose (UA) Neg (Negative) mg/dL Urine Ketones Neg (Negative) mg/dL Urine Blood Mod (Negative) Urine Nitrite Neg (Negative) Urine Bilirubin Neg (Negative) Urine Urobilinogen < 2.0 (<2.0) mg/dL Ur Leukocyte Esterase Neg (Negative) Urine WBC (Auto) 3.0 (0.0-6.0) /HPF Urine RBC (Auto) 6.0 (0.0-6.0) /HPF U Epithel Cells (Auto) < 1.0 (0-13.0) /HPF Urine Bacteria (Auto) 1+ (Negative) /HPF Hyaline Casts 1 /LPF Urine Mucus Few /HPF CSF Appearance Cloudy CSF Color Bloody CSF WBC 1250 (1-10) /mm3 CSF RBC 78464 (0-0) /mm3 CSF Seg Neutrophils 90 (0-6) % CSF Lymphocytes % 10 (40-80) % CSF Reactive Lymphs 0 % CSF Monocytes % 0 (15-45) % CSF Eosinophils % 0 % CSF Basophils 0 % CSF Pathologist Review C CSF Glucose mg/dL CSF Total Protein mg/dL Urine Opiates Screen Presumptive negative Urine Methadone Screen Presumptive negative Ur Barbiturates Screen Presumptive negative Phenytoin (10.0-20.0) ug/mL Ur Phencyclidine Scrn Presumptive negative Ur Amphetamines Screen Presumptive negative U Benzodiazepines Scrn Presumptive negative Urine Cocaine Screen Presumptive negative U Marijuana (THC) Screen Presumptive negative Drugs of Abuse Note Disclamer Plasma/Serum Alcohol (0-0.07) % - EKG Data -: EKG Interpreted by Md EKG shows normal: sinus rhythm Rate: tachycardia - Radiology Data Radiology results: report reviewed - Medical Decision Making Patient received a total 6 mg Ativan with cessation of seizure activity Due to the patient having poor venous access central line was placed Due to the patient however seizures that went uncomfortable initially with a fever lumbar puncture was done for evaluation of infection IV antibiotics ordered as well as IV acyclovir Critical Care Time: Yes Critical care time in (mins) excluding proc time.: 90 Critical care attestation.: If time is entered above; I have spent that time in minutes in the direct care of this critically ill patient, excluding procedure time. ED Disposition Clinical Impression: Altered mental status, Seizure, Fever Disposition: OP ADMIT IP TO THIS HOSP Is pt being admited?: Yes Does the pt Need Aspirin: No Condition: Fair Referrals: ANGEL BRUNO MD [Primary Care Provider] - 3-5 Days - Assessment Assessment Interval: Baseline - Level of Consciousness 1a. Level of Consciousness: arousable/minor stimuli - LOC Questions 1b. LOC Questions: answers no questions correctly - LOC Command 1c. LOC Commands: performs no tasks correctly - Best Gaze 2. Best Gaze: normal - Visual 3. Visual: no visual loss - Facial Palsy 4. Facial Palsy: normal symmetrical movement - Motor Arm 5a. Motor Arm Left: no drift 5b. Motor Arm Right: no drift - Motor Leg 6a. Motor Leg Left: no drift 6b. Motor Leg Right: no drift - Limb Ataxia 7. Limb Ataxia: absent - Sensory 8. Sensory: normal - Best Language 9. Best Language: no aphasia - Dysarthria 10. Dysarthria: normal - Extinction and Inattention 11. Extinction/Inattention: no abnormality - Scoring Total Score: 5 Stroke Severity: Moderate Stroke
[2019-10-15 06:29] LABS: Basophils % (Auto) 0.2 % (0.0-1.8); Eosinophils % (Auto) 0.1 % (0.0-4.3); Hematocrit 50.3 % (35.5-45.6); Hemoglobin 16.7 gm/dl (11.8-15.2); Lymphocytes # (Auto) 0.6 K/mm3 (1.2-5.4); Lymphocytes % (Auto) 4.6 % (13.4-35.0); Mean Corpuscular HGB Conc 33 % (32-34); Mean Corpuscular Volume 95 fl (84-94); Monocytes # (Auto) 1.4 K/mm3 (0.0-0.8); Monocytes % (Auto) 10.2 % (0.0-7.3); Platelet Count 281 K/mm3 (140-440); Red Blood Count 5.29 M/mm3 (3.65-5.03)
[2019-10-15 06:35] LABS: Calcium 9.6 mg/dL (8.4-10.2)
--- NOTE | 2019-10-15 06:45 | Cat Scan Report ---
CT head/brain wo con INDICATION: seizure, fall ams. TECHNIQUE: All CT scans at this location are performed using the following dose modulation technique: Automated exposure control. CONTRAST: CT head 01/04/2019. COMPARISON: None available. FINDINGS: Previous right frontal craniotomy. Bifrontal encephalomalacia remains. Negative for new mas s, stroke or hemorrhage. IMPRESSION: Stable CT brain. Signer Name: Ben Arrieta MD Signed: 10/15/2019 6:41 AM Workstation Name: [id number]
--- NOTE | 2019-10-15 06:48 | Cat Scan Report ---
CT cervical spine wo con INDICATION: MAIN: seizure, fall, AMS. TECHNIQUE: All CT scans at this location are performed using the following dose modulation technique: Automated exposure control. CONTRAST: None. COMPARISON: None available. FINDINGS: Satisfactory alignment without vertebral compression or significant degenerative change. Ch ronic avulsion posterior aspect of spinous process of C7. No soft tissue injury. IMPRESSION: No acute injury. Signer Name: Ben Arrieta MD Signed: 10/15/2019 6:43 AM Workstation Name: [id number]
[2019-10-15] MEDS ORDERED: CEFEPIME/NS 1 GM/100 ML 1 GM/100 ML BAG IV ONE (08:10)
[2019-10-15] MEDS ORDERED: ACETAMINOPHEN 650 MG RECT SUPP PR ONE ×2 (08:16→08:40)
[2019-10-15 09:00] LABS: Amphetamine Screen,Urine PRESUMPTIVE NEGATIVE; Benzodiazepines Screen,Urine PRESUMPTIVE NEGATIVE; Cannabinoid Screen,Urine PRESUMPTIVE NEGATIVE; Cocaine Screen,Urine PRESUMPTIVE NEGATIVE; Methadone Screen,Urine PRESUMPTIVE NEGATIVE; Opiate Screen,Urine PRESUMPTIVE NEGATIVE
[2019-10-15 09:01] LABS: Bacteria,Urine 1+ /HPF (Negative); Bilirubin,Urine NEG (Negative); Blood,Urine MOD (Negative); Color,Urine Yellow (Yellow); Hyaline Casts,Urine 1 /LPF; Mucus,Urine FEW /HPF; Urobilinogen,Urine < 2.0 mg/dL (<2.0)
--- NOTE | 2019-10-15 09:41 | XRay Report ---
CHEST 1 VIEW 10/15/2019 8:49 AM INDICATION / CLINICAL INFORMATION: fever. COMPARISON: Chest x-ray on 01/03/2019. FINDINGS: SUPPORT DEVICES: None. HEART / MEDIASTINUM: No significant abnormality. LUNGS / PLEURA: No significant pulmonary or pleural abnormality. No pneumothorax. ADDITIONAL FINDINGS: No significant additional findings. IMPRESSION: 1. No acute findings. Signer Name: Fredy Castrejon MD Signed: 10/15/2019 9:37 AM Workstation Name: [id number]
[2019-10-15] MEDS ORDERED: HYDROGEN PEROXIDE 118 ML SOLUTION ONE (10:38)
[2019-10-15] MEDS ORDERED: LIDOCAINE (1%) 10 MG/1 ML VIAL 20 ML MDV INFILTRATI ONE (10:47)
[2019-10-15] MEDS ORDERED: PROPOFOL 200 MG/20 ML VIAL IV ONE (10:56)
[2019-10-15] MEDS ORDERED: ONDANSETRON 4 MG/2 ML INJ IV ONE (10:56)
[2019-10-15 12:14] LABS: Glucose,CSF 102 mg/dL
[2019-10-15 12:47] LABS: Appearance,CSF Cloudy
[2019-10-15] MEDS ORDERED: SODIUM CHLORIDE 0.9% 1000 ML 2,000 ML IV ONE (12:47)
[2019-10-15 12:54] LABS: Red Blood Cell,CSF 50000 /mm3 (0-0); Total Cells Counted 100 /mm3; White Blood Cell,CSF 1250 /mm3 (1-10)
[2019-10-15 12:55] LABS: Basophils CSF 0 %
[2019-10-15] MEDS ORDERED: cefTRIAXone/NS 2 GM/100 ML 2 GM/100 ML BAG IV ONE (13:07)
--- NOTE | 2019-10-15 13:14 | History and Physical Report ---
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 Pt is lethargic at time of my evaluation and unable to provide detailed history. Pt history taken from [facility] Staff, EMS, and ED staff. As per staff, the patient was found down and and having a seizure in a closet. Pt was noted to have experienced multiple seizures. EMS was notified, and upon arrival the patient was found to be in di stress and transported to [facility]. Pt seen and evaluated in ED and found to have Encephalopathy with GCS:9 as well as fever to 102.6 and symptoms consistent with Sepsis, Acidosis and volume deplation. Pt initiated on Sepsis protocol and admitted to medical floor. QSOFA Score:3. No prior admission for review. All listed medication reconciled at time of admission. No further history obtainable. Pt is lethargic and confused, but has a positive gag reflex and is able to protect his airway. Past History Past Medical History: other (See HPI) Past Surgical History: Other (brain surgery) Social history: single, smoking. denies: alcohol abuse, prescription drug abuse Family history: no significant family history (Reviewed: UTO), other Medications and Allergies Allergies Allergy/AdvReac Type Severity Reaction Status Date / Time No Known Allergies Allergy Unverified 01/03/19 22:59 Home Medications Medication Instructions Recorded Confirmed Last Taken Type Phenytoin Sodium Extended 200 mg PO 10/15/19 Unknown History Sertraline HCl [Zoloft] 50 mg PO 10/15/19 Unknown History Active Meds: Active Medications Sodium Chloride (Nacl 0.9% 1000 Ml) 2,000 mls @ 999 mls/hr IV BOLUS ONE Stop: 10/15/19 14:47 Last Admin: 10/15/19 12:57 Dose: 999 mls/hr Documented by: Acyclovir 1,000 mg/ Sodium (Chloride) 120 mls @ 100 mls/hr IV Q8HR [facility]; Protocol Ceftriaxone Sodium (Rocephin/Ns 2 Gm/100 Ml) 2 gm in 100 mls @ 200 mls/hr IV ONCE ONE; Protocol Stop: 10/15/19 13:36 Review of Systems ROS unobtainable: due to mental status Exam - Constitutional Vitals: Temp Pulse Resp BP Pulse Ox 101.2 F H 107 H 16 124/70 100 10/15/19 12:42 10/15/19 12:42 10/15/19 12:42 10/15/19 12:42 10/15/19 12:42 General appearance: Present: mild distress, obese - EENT Eyes: Present: miosis - Neck Neck: Present: supple, normal ROM - Respiratory Respiratory effort: normal Respiratory: bilateral: CTA - Cardiovascular Heart Sounds: Present: S1 & S2. Absent: rub, click - Extremities Extremities: pulses symmetrical, No edema Peripheral Pulses: within normal limits - Abdominal General gastrointestinal: Present: soft, non-tender, non-distended, normal bowel sounds Male genitourinary: Present: normal - Integumentary Integumentary: Present: clear, warm, dry - Musculoskeletal Musculoskeletal: generalized weakness - Psychiatric Psychiatric: no appropriate mood/affect, no intact judgment & insight, no memory intact - Neurologic Neurologic: moves all extremities, no gait normal Results - Labs CBC & Chem 7: 10/15/19 06:00 10/15/19 06:00 Labs: Abnormal lab results 10/15/19 10/15/19 10/15/19 Range/Units 06:00 06:00 06:05 WBC 13.7 H (4.5-11.0) K/mm3 RBC 5.29 H (3.65-5.03) M/mm3 Hgb 16.7 H (11.8-15.2) gm/dl Hct 50.3 H (35.5-45.6) % MCV 95 H (84-94) fl Lymph % (Auto) 4.6 L (13.4-35.0) % [place] % (Auto) 10.2 H (0.0-7.3) % Lymph # 0.6 L (1.2-5.4) K/mm3 [place] # 1.4 H (0.0-0.8) K/mm3 Seg Neutrophils % 84.9 H (40.0-70.0) % Seg Neutrophils # 11.6 H (1.8-7.7) K/mm3 Sodium 148 H (137-145) mmol/L Chloride 108.9 H (98-107) mmol/L Carbon Dioxide 17 L (22-30) mmol/L BUN 21 H (9-20) mg/dL Glucose 137 H (75-100) mg/dL Magnesium 2.60 H (1.7-2.3) mg/dL Phenytoin 8.8 L (10.0-20.0) ug/mL Assessment and Plan - Patient Problems (1) Sepsis Current Visit: Yes Status: Acute Qualifiers: Severe sepsis acute organ dysfunction type: encephalopathy Plan to address problem: Sepsis Protocol: IV antibiotic therapy, serial lactic acid, IVF resuscitation therapy, CBC, CMP, chest x ray, urinalysis, blood cultures, (2) Seizure disorder Current Visit: Yes Status: Acute Plan to address problem: Dilantin level, supportive care, Keppra loading dose, repeat dilantin level in AM. Resume prehospital AED therapy (3) Encephalopathy Current Visit: Yes Status: Acute Plan to address problem: CT head, neuro check, aspiration precautions, seizure precautions, cmp, (4) Hypernatremia Current Visit: Yes Status: Acute Plan to address problem: IVF resuscitation therapy, repeat bmp, (5) Volume depletion Current Visit: Yes Status: Acute Plan to address problem: IVF resuscitation therapy, monitor uop q shift, (6) DVT prophylaxis Current Visit: Yes Status: Acute Plan to address problem: SCD to BLE while in bed, prophylactic lovenox
[2019-10-15] MEDS ORDERED: ALBUTEROL 2.5 MG/3 ML NEBU IH PRN (13:18)
[2019-10-15] MEDS ORDERED: ONDANSETRON 4 MG/2 ML INJ IV PRN (13:18)
[2019-10-15] MEDS ORDERED: SODIUM CHLORIDE 0.9% 1000 ML IV SOLN IV ONE (13:29)
[2019-10-15] MEDS ORDERED: VANCOMYCIN 2,000 MG in SODIUM CHLORIDE 0.9% 500 ML 500 ML IV ONE (13:29)
[2019-10-15] MEDS ORDERED: SODIUM BICARB 8.4% 50 MEQ/50 ML SYRINGE IV ONE (13:31)
[2019-10-15] MEDS ORDERED: SODIUM CHLORIDE 0.45% 2,000 ML IV SCH (14:00)
[2019-10-15] MEDS ORDERED: VANCOMYCIN PHARMACY TO DOSE IV SCH (14:00)
[2019-10-15] MEDS: ACYCLOVIR 1,000 MG in SODIUM CHLORIDE 0.9% 100 ML IV SCH ×2 (14:48→21:48)
[2019-10-15] MEDS: SODIUM CHLORIDE 0.45% 1000 ML 1,000 ML IV SCH (15:41)
[2019-10-15] MEDS: cefTRIAXone/NS 2 GM/100 ML 2 GM/100 ML BAG IV SCH (21:48)
[2019-10-15] MEDS: ENOXAPARIN 40 MG/0.4 ML INJ SUB-Q SCH (21:48)
[2019-10-16] MEDS: VANCOMYCIN 1,500 MG in SODIUM CHLORIDE 0.9% 500 ML 500 ML IV SCH ×2 (04:33→16:54)
[2019-10-16] MEDS: ACYCLOVIR 1,000 MG in SODIUM CHLORIDE 0.9% 100 ML IV SCH ×2 (06:21→14:36)
[2019-10-16 06:52] LABS: Basophils # (Auto) 0.1 K/mm3 (0.0-0.1); Basophils % (Auto) 0.9 % (0.0-1.8); Eosinophils # (Auto) 0.1 K/mm3 (0.0-0.4); Eosinophils % (Auto) 0.8 % (0.0-4.3); Hematocrit 44.8 % (35.5-45.6); Hemoglobin 14.8 gm/dl (11.8-15.2); Lymphocytes # (Auto) 2.5 K/mm3 (1.2-5.4); Lymphocytes % (Auto) 19.4 % (13.4-35.0); Mean Corpuscular HGB Conc 33 % (32-34); Mean Corpuscular Volume 94 fl (84-94); Monocytes # (Auto) 1.9 K/mm3 (0.0-0.8); Monocytes % (Auto) 14.8 % (0.0-7.3); Platelet Count 233 K/mm3 (140-440); Red Blood Count 4.77 M/mm3 (3.65-5.03); Red Cell Distribution Width 13.8 % (13.2-15.2)
[2019-10-16 07:37] LABS: Alanine Aminotransferase 21 units/L (7-56); Albumin 3.7 g/dL (3.9-5); BUN/Creatinine Ratio 17; Blood Urea Nitrogen 12 mg/dL (9-20); Calcium 8.1 mg/dL (8.4-10.2); Hemolysis Index 11
[2019-10-16] MEDS: cefTRIAXone/NS 2 GM/100 ML 2 GM/100 ML BAG IV SCH ×2 (12:51→21:54)
[2019-10-16] MEDS: ACETAMINOPHEN 325 MG TAB PO PRN (13:02)
[2019-10-16] MEDS ORDERED: NEOMY 3.5 MG/BACIT 400 UNITS/POLY B 5000 UNITS/GM OINT PACKET TP ONE (14:25)
--- NOTE | 2019-10-16 17:51 | Progress Note ---
Assessment and Plan 1) Sepsis Current Visit: Yes Status: Acute Qualifiers: Severe sepsis acute organ dysfunction type: encephalopathy Plan to address problem: Sepsis Protocol: IV antibiotic therapy, serial lactic acid, IVF resuscitation therapy, CBC, CMP, chest x ray, urinalysis, blood cultures, IV Abx and IV Acyclovir (2) Seizure disorder Current Visit: Yes Status: Acute Plan to address problem: Dilantin level, supportive care, Keppra loading dose, repeat dilantin level in AM. Resume prehospital AED therapy (3) Encephalopathy Current Visit: Yes Status: Acute Plan to address problem: CT head, neuro check, aspiration precautions, seizure precautions, cmp, (4) Hypernatremia Current Visit: Yes Status: Acute Plan to address problem: IVF resuscitation therapy, repeat bmp, (5) Volume depletion Current Visit: Yes Status: Acute Plan to address problem: IVF resuscitation therapy, monitor uop q shift, (6) DVT prophylaxis Current Visit: Yes Status: Acute Plan to address problem: SCD to BLE while in bed, prophylactic lovenox Subjective Date of service: 10/16/19 Principal diagnosis: Seizures and possible Meningitis Interval history: 49 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 Pt is lethargic at time of my evaluation and unable to provide detailed history. Pt [facility] taken from [facility] Staff, EMS, and ED staff. As per staff, the patient was found down and and having a seizure in a closet. Pt was noted to have experienced multiple seizures. EMS was notified, and upon arrival the patient was found to be in distress and transported to [facility]. Pt seen and evaluated in ED and found to have Encephalopathy with GCS:9 as well as fever to 102.6 and symptoms consistent with Sepsis, Acidosis and volume deplation. Pt initiated on Sepsis protocol and admitted to medical floor. QSOFA Score:3. No prior admission for review. All listed medication reconciled at time of admission. No further history ob tainable. Pt is lethargic and confused, but has a positive gag reflex and is able to protect his airway. ( Objective - Constitutional Vitals: Vital Signs - 12hr 10/16/19 10/16/19 10/16/19 08:41 11:27 16:36 Temperature 98.2 F 97.8 F Pulse Rate 84 79 Respiratory 18 18 Rate Blood Pressure 130/80 130/78 O2 Sat by Pulse 95 95 93 Oximetry General appearance: Present: no acute distress, well-nourished - EENT Eyes: PERRL, EOM intact ENT: hearing intact, clear oral mucosa Ears: bilateral: normal - Neck Neck: supple, normal ROM - Respiratory Respiratory effort: normal Respiratory: bilateral: CTA - Breasts Breasts: normal - Cardiovascular Rhythm: regular Heart Sounds: Present: S1 & S2. Absent: gallop, rub Extremities: pulses intact, No edema, normal color, Full ROM - Gastrointestinal General gastrointestinal: Present: soft, non-tender, non-distended, normal bowel sounds - Genitourinary Male genitourinary: normal - Integumentary Integumentary: clear, warm, dry - Musculoskeletal Musculoskeletal: 1, strength equal bilaterally - Neurologic Neurologic: moves all extremities - Psychiatric Psychiatric: memory intact, appropriate mood/affect, intact judgment & insight - Labs CBC & Chem 7: 10/20/19 23:14 10/20/19 23:14 Labs: Abnormal lab results 10/15/19 10/16/19 10/16/19 Range/Units 21:37 06:30 06:30 WBC 12.7 H (4.5-11.0) K/mm3 [place] % (Auto) 14.8 H (0.0-7.3) % [place] # 1.9 H (0.0-0.8) K/mm3 Seg Neutrophils # 8.1 H (1.8-7.7) K/mm3 Creatinine 0.7 L (0.8-1.5) mg/dL Glucose 109 H (75-100) mg/dL POC Glucose 107 H (70-105) Calcium 8.1 L D (8.4-10.2) mg/dL Albumin 3.7 L (3.9-5) g/dL Phenytoin (10.0-20.0) ug/mL 10/16/19 10/16/19 10/16/19 Range/Units 06:30 16:22 17:48 WBC (4.5-11.0) K/mm3 [place] % (Auto) (0.0-7.3) % [place] # (0.0-0.8) K/mm3 Seg Neutrophils # (1.8-7.7) K/mm3 Creatinine (0.8-1.5) mg/dL Glucose (75-100) mg/dL POC Glucose 108 H 146 H (70-105) Calcium (8.4-10.2) mg/dL Albumin (3.9-5) g/dL Phenytoin 5.9 L (10.0-20.0) ug/mL
[2019-10-16] MEDS: ENOXAPARIN 40 MG/0.4 ML INJ SUB-Q SCH (21:58)
[2019-10-16] MEDS: SODIUM CHLORIDE 0.45% 1000 ML 1,000 ML IV SCH (21:59)
[2019-10-16] MEDS: ACYCLOVIR 800 MG in SODIUM CHLORIDE 0.9% 250ML 250 ML IV SCH (21:59)
[2019-10-17] MEDS: VANCOMYCIN 1,500 MG in SODIUM CHLORIDE 0.9% 500 ML 500 ML IV SCH ×2 (03:21→15:11)
[2019-10-17] MEDS: ACYCLOVIR 800 MG in SODIUM CHLORIDE 0.9% 250ML 250 ML IV SCH ×2 (05:04→14:35)
[2019-10-17] MEDS: cefTRIAXone/NS 2 GM/100 ML 2 GM/100 ML BAG IV SCH (09:04)
[2019-10-17] MEDS: SODIUM CHLORIDE 0.45% 1000 ML 1,000 ML IV SCH (14:36)
--- NOTE | 2019-10-17 17:05 | Progress Note ---
Assessment and Plan 1) Sepsis Current Visit: Yes Status: Acute Qualifiers: Severe sepsis acute organ dysfunction type: encephalopathy Plan to address problem: Sepsis Protocol: IV antibiotic therapy, serial lactic acid, IVF resuscitation therapy, CBC, CMP, chest x ray, urinalysis, blood cultures, IV Abx and IV Acyclovir Await HSV pcr results from CSF fluid (2) Seizure disorder Current Visit: Yes Status: Acute Plan to address problem: Dilantin level, supportive care, Keppra loading dose, repeat dilantin level in AM. Resume prehospital AED therapy (3) Encephalopathy Current Visit: Yes Status: Acute Plan to address problem: Being Treated as HSV meningitis Abx stopped ON IV Acyclovir by ID--Dr Ramos (4) Hypernatremia Current Visit: Yes Status: Acute Plan to address problem: Improved (5) Volume depletion Current Visit: Yes Status: Acute Plan to address problem: IVF resuscitation therapy, monitor uop q shift, ( 6)NATHALY sec to VMN IV Fluids for now Improving (7) DVT prophylaxis Current Visit: Yes Status: Acute Plan to address problem: SCD to BLE while in bed, prophylactic lovenox Subjective Date of service: 10/17/19 Principal diagnosis: Seizures and possible HSV Meningitis Interval history: 49 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 Pt is lethargic at time of my evaluation and unable to provide detailed history. Pt history taken from [facility] Staff, EMS, and ED staff. As per staff, the patient was found down and and having a seizure in a closet. Pt was noted to have experienced multiple seizures. EMS was notified, and upon arrival the patient was found to be in distress and transported to [facility]. Pt seen and evaluated in ED and found to have Encephalopathy with GCS:9 as well as fever to 102.6 and symptoms consistent with Sepsis, Acidosis and volume deplation. Pt initiated on Sepsis protocol and admitted to medical floor. QSOFA Score:3. No prior admission for review. All listed medication reconciled at time of admission. No further history obtainable. Pt is lethargic and confused, but has a positive gag reflex and is able to protect his airway. More alert an oriented Objective - Constitutional Vitals: Vital Signs - 12hr 10/17/19 10/17/19 05:21 11:50 Temperature 98.3 F 32.1 F L Pulse Rate 78 82 Respiratory 16 16 Rate Blood Pressure 153/87 135/68 O2 Sat by Pulse 96 95 Oximetry General appearance: Present: no acute distress, well-nourished - EENT Eyes: PERRL, EOM intact ENT: hearing intact, clear oral mucosa Ears: bilateral: normal - Neck Neck: supple, normal ROM - Respiratory Respiratory effort: normal Respiratory: bilateral: CTA - Breasts Breasts: normal - Cardiovascular Rhythm: regular Heart Sounds: Present: S1 & S2. Absent: gallop, rub Extremities: pulses intact, No edema, normal color, Full ROM - Gastrointestinal General gastrointestinal: Present: soft, non-tender, non-distended, normal bowel sounds - Genitourinary Male genitourinary: normal - Integumentary Integumentary: clear, warm, dry - Musculoskeletal Musculoskeletal: 1, strength equal bilaterally - Neurologic Neurologic: moves all extremities - Psychiatric Psychiatric: memory intact, appropriate mood/affect, intact judgment & insight - Labs CBC & Chem 7: 10/20/19 23:14 10/20/19 23:14 Labs: Abnormal lab results 10/16/19 Range/Units 17:48 POC Glucose 146 H (70-105)
[2019-10-18] MEDS: ENOXAPARIN 40 MG/0.4 ML INJ SUB-Q SCH ×2 (01:01→21:57)
[2019-10-18] MEDS: VANCOMYCIN 1,500 MG in SODIUM CHLORIDE 0.9% 500 ML 500 ML IV SCH (05:16)
[2019-10-18] MEDS: cefTRIAXone/NS 2 GM/100 ML 2 GM/100 ML BAG IV SCH ×2 (05:16→10:55)
[2019-10-18 08:25] LABS: Basophils % (Auto) TNR % (0.0-1.8); Eosinophils % (Auto) TNR % (0.0-4.3); Hematocrit TNR % (35.5-45.6); Hemoglobin TNR gm/dl (11.8-15.2); Lymphocytes # (Auto) TNR K/mm3 (1.2-5.4); Lymphocytes % (Auto) TNR % (13.4-35.0); Mean Corpuscular HGB Conc TNR % (32-34); Mean Corpuscular Volume TNR fl (84-94); Monocytes # (Auto) TNR K/mm3 (0.0-0.8); Monocytes % (Auto) TNR % (0.0-7.3); Platelet Count TNR K/mm3 (140-440); Red Blood Count TNR M/mm3 (3.65-5.03); Red Cell Distribution Width TNR % (13.2-15.2)
[2019-10-18 08:26] LABS: Basophils # (Auto) TNR K/mm3 (0.0-0.1); Eosinophils # (Auto) TNR K/mm3 (0.0-0.4)
[2019-10-18 08:37] LABS: Albumin 3.2 g/dL (3.9-5); Calcium 8.4 mg/dL (8.4-10.2)
[2019-10-18 09:18] LABS: Hematocrit 45.6 % (35.5-45.6); Hemoglobin 15.2 gm/dl (11.8-15.2); Mean Corpuscular HGB Conc 33 % (32-34); Mean Corpuscular Volume 96 fl (84-94); Red Blood Count 4.75 M/mm3 (3.65-5.03); Red Cell Distribution Width 13.7 % (13.2-15.2)
[2019-10-18 10:09] LABS: Basophils % (Manual) 0 % (0.0-1.8); Eosinophils % (Manual) 0 % (0.0-4.3); Platelet Clumps Few; Platelet Estimate Consistent w Auto; RBC Morphology Normal; Total Cells Counted 100
[2019-10-18 11:06] LABS: Platelet Count 232 K/mm3 (140-440)
--- NOTE | 2019-10-18 14:53 | Consultation ---
History of Present Illness - Reason for Consult Consult date: 10/18/19 Sepsis, ?meningitis and need for acyclovir Requesting physician: ALY SUAREZ - History of Present Illness The patient is a 49-year-old male with seizure disorder, field of the [facility], diabetes, prior CVA, resident of an assisted living facility was brought into the emergency room on 10/15/2019 after he was found down having a seizure. Apparently, he continued to have multiple seizures and hence was brought into the emergency room by EMS. Noted to have fever of 102.8F along with concerns for sepsis. LP was done and showed high RBCs and WBCs, patient is on empiric antibiotics. Infectious diseases was consulted for additional recommendations. Afebrile for the last 2 days. Mental status appears to be improving. He has been receiving anti-seizure medications. Poor historian. Review of Systems: General: no fevers,chills or rigors at present HEENT: no new visual disturbance Respiratory: No cough, sputum, hemoptysis or shortness of breath Cardiovascular: No chest pain, syncope Gastrointestinal: No nausea, vomiting or diarrhea Genitourinary: No dysuria or hematuria Musculoskeletal: No new or worsening neck pain or back pain Neurologic: No headaches, seizures Hematologic: No easy bruising or bleeding Endocrine: No night sweats or acute weight loss Skin: negative for rash, jaundice Psychiatric: No suicidal or homicidal ideation Past History Past Medical History: other (See HPI) Past Surgical History: Other (brain surgery) Social history: single, smoking. denies: alcohol abuse, prescription drug abuse Family history: no significant family history (Reviewed: UTO), other Medications and Allergies Allergies Allergy/AdvReac Type Severity Reaction Status Date / Time No Known Allergies Allergy Unverified 01/03/19 22:59 Home Medications Medication Instructions Recorded Confirmed Last Taken Type Phenytoin Sodium Extended 400 mg PO QAM 10/15/19 10/18/19 Unknown History Sertraline HCl [Zoloft] 50 mg PO DAILY 10/15/19 10/18/19 Unknown History Phenytoin Sodium Extended 600 mg PO QPM 10/18/19 10/18/19 Unknown History Active Meds: Active Medications Acetaminophen (Tylenol) 650 mg PO Q4H PRN PRN Reason: Pain MILD(1-3)/Fever >100.5/[place] Last Admin: 10/16/19 13:02 Dose: 650 mg Documented by: Albuterol (Proventil) 2.5 mg IH Q4HRT PRN PRN Reason: Shortness Of Breath Enoxaparin Sodium (Enoxaparin) 40 mg SUB-Q QDAY@2200 [facility] Last Admin: 10/18/19 01:01 Dose: 40 mg Documented by: Ceftriaxone Sodium (Rocephin/Ns 2 Gm/100 Ml) 2 gm in 100 mls @ 200 mls/hr IV Q12HR [facility]; Protocol Last Admin: 10/18/19 10:55 Dose: 200 mls/hr Documented by: Vancomycin HCl 1,500 mg/ (Sodium Chloride) 530 mls @ 333.333 mls/hr IV Q12H [facility] Last Admin: 10/18/19 05:16 Dose: Not Given Documented by: Sodium Chloride (Nacl 0.45% 1000 Ml) 1,000 mls @ 100 mls/hr IV DIRECT [facility] Last Admin: 10/17/19 14:36 Dose: 100 mls/hr Documented by: Ondansetron HCl (Zofran) 4 mg IV Q8H PRN PRN Reason: Nausea And Vomiting Sodium Chloride (Sodium Chloride Flush Syringe 10 Ml) 10 ml IV BID [facility] Last Admin: 10/18/19 10:56 Dose: 10 ml Documented by: Sodium Chloride (Sodium Chloride Flush Syringe 10 Ml) 10 ml IV PRN PRN PRN Reason: LINE FLUSH Physical Examination - Physical Exam Narrative exam: Physical Exam: Constitutional: Alert, cooperative. No acute distress Head, Ears, Nose: Normocephalic, atraumatic. External ears, nose normal Eyes: Conjunctivae/corneas clear. No icterus. No ptosis. Neck: Supple, no meningeal signs Oral: dentition fair, no thrush Cardiovascular: S1, S2 normal. Respiratory: Good air entry, clear to auscultation bilaterally GI: Soft, non-tender; bowel sounds normal. No peritoneal signs Musculoskeletal: No pedal edema, no cyanosis. Skin: No rash or abscess Hem/Lymphatic: No palpable cervical or supraclavicular nodes. No lymphangitis Psych: no agitation Neurological: Awake, alert, answers basic questions but not oriented: knows he is in the hospital, unable to name it, can't recall date. - Constitutional Vitals: Vital Signs Temp Pulse Resp BP Pulse Ox 99.6 F 90 20 131/82 93 10/18/19 11:48 10/18/19 11:48 10/18/19 11:48 10/18/19 11:48 10/18/19 11:48 Temperature -Last 24 Hours Temperature 99.6 F Temperature 98.3 F Temperature 99.2 F Temperature 97.8 F Results - Labs CBC & Chem 7: 10/18/19 08:40 10/18/19 07:20 Labs: Abnormal lab results 10/18/19 10/18/19 Range/Units 07:20 08:40 WBC 13.4 H (4.5-11.0) K/mm3 MCV 96 H (84-94) fl Seg Neuts % (Manual) 73.0 H (40.0-70.0) % Lymphocytes % (Manual) 9.0 L (13.4-35.0) % Monocytes % (Manual) 18.0 H (0.0-7.3) % Seg Neutrophils # Man 9.8 H (1.8-7.7) K/mm3 Monocytes # (Manual) 2.4 H (0.0-0.8) K/mm3 Sodium 148 H (137-145) mmol/L Chloride 112.7 H (98-107) mmol/L Carbon Dioxide 20 L (22-30) mmol/L Creatinine 1.7 H D (0.8-1.5) mg/dL Glucose 102 H (75-100) mg/dL Albumin 3.2 L (3.9-5) g/dL - Imaging and Cardiology Chest x-ray: report reviewed, image reviewed (no pneumonia) CT Scan - head: report reviewed, image reviewed (no acute findings. Old R frontal craniotomy and b/l frontal encephalomalacia) Assessment and Plan Cultures: 10/15/2019 CSF shows 1,250 WBC, 50,000 RBC, 90% neutrophils, glucose 102, protein 166. CSF VDRL: Nonreactive 10/15/2019 blood culture: No growth 10/15/2019 CSF culture: no growth after 72 hours CSF Crypto Ag: negative A/P: 49-year-old male with seizure disorder, field of [facility], diabetes, prior CVA, resident of an assisted living facility was brought into the emergency room on 10/15/2019 after he was found to have multiple seizures. #Sepsis: infection v/s seizure related. ?meningitis v/s post ictal pleocytosis. CSF appears hemorrhagic, however, even with correction for traumatic/bloody CSF, the number of WBCs is high. Also, increased RBCs could be seen in HSV meningoencephalitis. Cultures have remained negative, mental status appears much improved, acute bacterial meningitis is unlikely. No other source of infection identified. #Seizure disorder #NATHALY: renally dose abx. Recs: - discontinued Ceftriaxone, Vancomycin - need to continue IV Acyclovir till HSV PCR results are back d/w Dr. Suarez. Amada Ramos MD, FACP [facility] C: [phone] O: [phone] F: [phone]
--- NOTE | 2019-10-18 16:44 | Progress Note ---
Assessment and Plan 1) Sepsis Current Visit: Yes Status: Acute Qualifiers: Severe sepsis acute organ dysfunction type: encephalopathy Plan to address problem: Sepsis Protocol: IV antibiotic therapy, serial lactic acid, IVF resuscitation therapy, CBC, CMP, chest x ray, urinalysis, blood cultures, IV Abx and IV Acyclovir Await HSV pcr results from CSF fluid (2) Seizure disorder Current Visit: Yes Status: Acute Plan to address problem: Dilantin level, supportive care, Keppra loading dose, repeat dilantin level in AM. Resume prehospital AED therapy (3) Encephalopathy Current Visit: Yes Status: Acute Plan to address problem: Being Treated as HSV meningitis Abx stopped ON IV Acyclovir by ID--Dr Ramos Await HSV pcr results (4) Hypernatremia Current Visit: Yes Status: Acute Plan to address problem: Improved (5) Volume depletion Current Visit: Yes Status: Acute Plan to address problem: IVF resuscitation therapy, monitor uop q shift, ( 6)NATHALY sec to VMN IV Fluids for now Improving (7) DVT prophylaxis Current Visit: Yes Status: Acute Plan to address problem: SCD to BLE while in bed, prophylactic lovenox Subjective Date of service: 10/18/19 Principal diagnosis: Seizure and 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 Pt is lethargic at time of my evaluation and unable to provide detailed history. Pt history taken from [facility] Staff, EMS, and ED staff. As per staff, the patient was found down and and having a seizure in a closet. Pt was noted to have experienced multiple seizures. EMS was notified, and upon arrival the patient was found to be in distress and transported to [facility]. Pt seen and evaluated in ED and found to have Encephalopathy with GCS:9 as well as fever to 102.6 and symptoms consistent with Sepsis, Acidosis and volume deplation. Pt initiated on Sepsis protocol and admitted to medical floor. QSOFA Score:3. No prior admission for review. All listed medication reconciled at time of admission. No further history obtainable. Pt is lethargic and confused, but has a positive gag reflex and is able to protect his airway. Objective - Constitutional Vitals: Vital Signs - 12hr 10/18/19 10/18/19 04:59 11:48 Temperature 98.3 F 99.6 F Pulse Rate 79 90 Respiratory 20 20 Rate Blood Pressure 144/84 131/82 O2 Sat by Pulse 96 93 Oximetry General appearance: Present: no acute distress, well-nourished - EENT Eyes: PERRL, EOM intact ENT: hearing intact, clear oral mucosa Ears: bilateral: normal - Neck Neck: supple, normal ROM - Respiratory Respiratory effort: normal Respiratory: bilateral: CTA - Breasts Breasts: normal - Cardiovascular Rhythm: regular Heart Sounds: Present: S1 & S2. Absent: gallop, rub Extremities: pulses intact, No edema, normal color, Full ROM - Gastrointestinal General gastrointestinal: Present: soft, non-tender, non-distended, normal bowel sounds - Genitourinary Male genitourinary: normal - Integumentary Integumentary: clear, warm, dry - Musculoskeletal Musculoskeletal: 1, strength equal bilaterally - Neurologic Neurologic: moves all extremities - Psychiatric Psychiatric: memory intact, appropriate mood/affect, intact judgment & insight - Labs CBC & Chem 7: 10/20/19 23:14 10/20/19 23:14 Labs: Abnormal lab results 10/18/19 10/18/19 10/18/19 Range/Units 07:20 08:40 16:47 WBC 13.4 H (4.5-11.0) K/mm3 MCV 96 H (84-94) fl Seg Neuts % (Manual) 73.0 H (40.0-70.0) % Lymphocytes % (Manual) 9.0 L (13.4-35.0) % Monocytes % (Manual) 18.0 H (0.0-7.3) % Seg Neutrophils # Man 9.8 H (1.8-7.7) K/mm3 Monocytes # (Manual) 2.4 H (0.0-0.8) K/mm3 Sodium 148 H (137-145) mmol/L Chloride 112.7 H (98-107) mmol/L Carbon Dioxide 20 L (22-30) mmol/L Creatinine 1.7 H D (0.8-1.5) mg/dL Glucose 102 H (75-100) mg/dL POC Glucose 115 H (70-105) Albumin 3.2 L (3.9-5) g/dL
[2019-10-18] MEDS: ACYCLOVIR 500 MG in SODIUM CHLORIDE 0.9% 100 ML IV SCH (18:59)
[2019-10-18] MEDS: SODIUM CHLORIDE 0.45% 1000 ML 1,000 ML IV SCH (19:00)
[2019-10-19] MEDS: ACETAMINOPHEN 325 MG TAB PO PRN ×3 (03:01→14:11)
[2019-10-19] MEDS: ACYCLOVIR 500 MG in SODIUM CHLORIDE 0.9% 100 ML IV SCH ×2 (06:38→18:33)
--- NOTE | 2019-10-19 09:53 | Progress Note ---
Assessment and Plan Cultures: 10/15/2019 CSF shows 1,250 WBC, 50,000 RBC, 90% neutrophils, glucose 102, protein 166. CSF VDRL: Nonreactive 10/15/2019 blood culture: No growth 10/15/2019 CSF culture: no growth after 72 hours CSF Crypto Ag: negative A/P: 49-year-old male with seizure disorder, field of the [facility], diabetes, prior CVA, resident of an assisted living facility was brought into the emergency room on 10/15/2019 after he was found to have multiple seizures. #Sepsis: infection v/s seizure related. ?meningitis v/s post ictal pleocytosis. CSF appears hemorrhagic, however, even with correction for traumatic tap CSF, the number of WBCs is high. Also, increased RBCs could be seen in HSV meningoencephalitis. Cultures have remained negative, mental status appears much improved, acute bacterial meningitis is unlikely. No other source of infection identified. #Seizure disorder: on meds. #NATHALY: renally dose abx. Monitor creatinine. Recs: - continue IV Acyclovir, renally adjusted till CSF HSV PCR results are back - CBC and BMP ordered for CALLI Ramos MD, FACP [facility] ([facility] C: [phone] O: [phone] F: [phone] Subjective Date of service: 10/19/19 Interval history: No fever. No seizures. Denies any complaints. No rash. Objective - Exam Narrative Exam: Physical Exam: Constitutional: Alert, cooperative. No acute distress Head, Ears, Nose: Normocephalic, atraumatic. External ears, nose normal Eyes: Conjunctivae/corneas clear. No icterus. No ptosis. Neck: Supple, no meningeal signs Cardiovascular: S1, S2 normal. Respiratory: Good air entry, clear to auscultation bilaterally GI: Soft, non-tender; bowel sounds normal. No peritoneal signs Musculoskeletal: No pedal edema, no cyanosis. Skin: No rash or abscess Hem/Lymphatic: No palpable cervical or supraclavicular nodes. No lymphangitis Psych: no agitation Neurological: Awake, alert, answers basic questions. - Constitutional Vitals: Vital Signs Temp Pulse Resp BP Pulse Ox 98.5 F 70 20 123/70 96 10/19/19 04:50 10/19/19 04:50 10/19/19 04:50 10/19/19 04:50 10/19/19 04:50 Temperature -Last 24 Hours Temperature 98.5 F Temperature 98.3 F Temperature 98.8 F Temperature 99.6 F - Labs CBC & Chem 7: 10/18/19 08:40 10/18/19 07:20 Labs: Abnormal lab results 10/18/19 10/18/19 Range/Units 08:40 16:47 Seg Neuts % (Manual) 73.0 H (40.0-70.0) % Lymphocytes % (Manual) 9.0 L (13.4-35.0) % Monocytes % (Manual) 18.0 H (0.0-7.3) % Seg Neutrophils # Man 9.8 H (1.8-7.7) K/mm3 Monocytes # (Manual) 2.4 H (0.0-0.8) K/mm3 POC Glucose 115 H (70-105)
[2019-10-19] MEDS: LORazepam 2 MG/ML VIAL IV PRN (15:25)
--- NOTE | 2019-10-19 16:54 | Progress Note ---
Assessment and Plan 1) Sepsis Current Visit: Yes Status: Acute Qualifiers: Severe sepsis acute organ dysfunction type: encephalopathy Plan to address problem: Sepsis Protocol: IV antibiotic therapy, serial lactic acid, IVF resuscitation therapy, CBC, CMP, chest x ray, urinalysis, blood cultures, IV Abx and IV Acyclovir Await HSV pcr results from CSF fluid (2) Seizure disorder Current Visit: Yes Status: Acute Plan to address problem: Dilantin level, supportive care, Keppra loading dose, repeat dilantin level in AM. Resume prehospital AED therapy (3) Encephalopathy Current Visit: Yes Status: Acute Plan to address problem: Being Treated as HSV meningitis Abx stopped ON IV Acyclovir by ID--Dr Ramos (4) Hypernatremia Current Visit: Yes Status: Acute Plan to address problem: Improved (5) Volume depletion Current Visit: Yes Status: Acute Plan to address problem: IVF resuscitation therapy, monitor uop q shift, ( 6)NATHALY sec to VMN IV Fluids for now Improving (7) DVT prophylaxis Current Visit: Yes Status: Acute Plan to address problem: SCD to BLE while in bed, prophylactic lovenox Subjective Date of service: 10/19/19 Principal diagnosis: Sezures and meningitis Interval history: 49 YO Male Assisted Living Facility Resident who is currently a field of the [facility] with a state appointed guardian with Seizure Disorder, DM, CVA with RHP, Nicotine Dependence presents to ED for evaluation. Pt is lethargic at time of my evaluation and unable to provide detailed history. Pt history taken from [facility] Staff, EMS, and ED staff. As per staff, the patient was found down and and having a seizure in a closet. Pt was noted to have experienced multiple seizures. EMS was notified, and upon arrival the patient was found to be in distress and transported to [facility]. Pt seen and evaluated in ED and found to have Encephalopathy with GCS:9 as well as fever to 102.6 and symptoms consistent with Sepsis, Acidosis and volume deplation. Pt initiated on Sepsis protocol and admitted to medical floor. QSOFA Score:3. No prior admission for review. All listed medication reconciled at time of admission. No further history obtainable. Pt is lethargic and confused, but has a positive gag reflex and is able to protect his airway. Patient had seizures around 4 pm today--witnessed by me.Generalized tonic clonic lasting for about 2 to 3 minutes.Was postictal. ( Objective - Constitutional General appearance: Present: no acute distress, well-nourished - EENT Eyes: PERRL, EOM intact ENT: hearing intact, clear oral mucosa Ears: bilateral: normal - Neck Neck: supple, normal ROM - Respiratory Respiratory effort: normal Respiratory: bilateral: CTA - Breasts Breasts: normal - Cardiovascular Rhythm: regular Heart Sounds: Present: S1 & S2. Absent: gallop, rub Extremities: pulses intact, No edema, normal color, Full ROM - Gastrointestinal General gastrointestinal: Present: soft, non-tender, non-distended, normal bowel sounds - Genitourinary Male genitourinary: normal - Integumentary Integumentary: clear, warm, dry - Musculoskeletal Musculoskeletal: 1, strength equal bilaterally - Neurologic Neurologic: moves all extremities - Psychiatric Psychiatric: memory intact, appropriate mood/affect, intact judgment & insight - Labs CBC & Chem 7: 10/20/19 23:14 10/20/19 23:14
[2019-10-19] MEDS: ENOXAPARIN 40 MG/0.4 ML INJ SUB-Q SCH (21:53)
[2019-10-19] MEDS: SODIUM CHLORIDE 0.45% 1000 ML 1,000 ML IV SCH (22:00)
[2019-10-20] MEDS: ACYCLOVIR 500 MG in SODIUM CHLORIDE 0.9% 100 ML IV SCH ×2 (06:10→17:37)
--- NOTE | 2019-10-20 10:24 | Progress Note ---
Assessment and Plan Cultures: 10/15/2019 CSF shows 1,250 WBC, 50,000 RBC, 90% neutrophils, glucose 102, protein 166. CSF VDRL: Nonreactive 10/15/2019 blood culture: No growth 10/15/2019 CSF culture: no growth after 72 hours CSF Crypto Ag: negative A/P: 49-year-old male with seizure disorder, field of the [facility], diabetes, prior CVA, resident of an assisted living facility was brought into the emergency room on 10/15/2019 after he was found to have multiple seizures. #Sepsis: infection v/s seizure related. ?meningitis v/s post ictal pleocytosis. CSF appears hemorrhagic, however, even with correction for traumatic tap CSF, the number of WBCs is high. Also, increased RBCs could be seen in HSV meningoencephalitis. Cultures have remained negative, mental status appears much improved, acute bacterial meningitis is unlikely. No other source of infection identified. #Seizure disorder: on meds. No more seizures. #NATHALY: renally dose abx. Monitor creatinine. Recs: - continue IV Acyclovir, renally adjusted till CSF HSV PCR results are back. Called and spoke with Lavinia from microbiology lab, she will try to find out the results. - CBC and BMP ordered yesterday, but not collected yet Amada Ramos MD, FACP [facility], [place], [facility] C: [phone] O: [phone] F: [phone] Subjective Date of service: 10/20/19 Interval history: No fever. No seizures. Complains of mild abdominal pain. No nausea, vomiting. No rash. Objective - Exam Narrative Exam: Physical Exam: Constitutional: Alert, cooperative. No acute distress Head, Ears, Nose: Normocephalic, atraumatic. External ears, nose normal Eyes: Conjunctivae/corneas clear. No icterus. No ptosis. Neck: Supple, no meningeal signs Cardiovascular: S1, S2 normal. Respiratory: Good air entry, clear to auscultation bilaterally GI: Soft, non-tender; bowel sounds normal. No peritoneal signs Musculoskeletal: No pedal edema, no cyanosis. Skin: No rash or abscess Hem/Lymphatic: No palpable cervical or supraclavicular nodes. No lymphangitis Psych: no agitation Neurological: Awake, alert, answers basic questions. - Constitutional Vitals: Vital Signs Temp Pulse Resp BP Pulse Ox 98.6 F 73 18 133/79 98 10/20/19 04:28 10/20/19 04:28 10/20/19 04:28 10/20/19 04:28 10/20/19 04:28 Temperature -Last 24 Hours Temperature 98.6 F Temperature 97.3 F Temperature 98.6 F Temperature 98.9 F - Labs CBC & Chem 7: 10/18/19 08:40 10/18/19 07:20 Labs: Abnormal lab results 10/19/19 Range/Units 17:40 POC Glucose 129 H (70-105)
[2019-10-20] MEDS: ACETAMINOPHEN 325 MG TAB PO PRN (10:57)
--- NOTE | 2019-10-20 19:32 | Progress Note ---
Assessment and Plan Assessment and plan: (1) Sepsis Current Visit: Yes Status: Acute Sepsis Protocol: IV antibiotic therapy, serial lactic acid, IVF resuscitation therapy, CBC, CMP, chest x ray, urinalysis, blood cultures, (2) Seizure disorder Current Visit: Yes Status: Acute : Dilantin level, supportive care, Keppra loading dose, repeat dilantin level in AM. Resume prehospital AED therapy Seizure precautions (3) Encephalopathy Current Visit: Yes Status: Acute Plan to address problem: CT head, neuro check, aspiration precautions, seizure precautions, cmp, (4) Hypernatremia Current Visit: Yes Status: Acute Plan to address problem: IVF resuscitation therapy, repeat bmp, (5) Volume depletion Current Visit: Yes Status: Acute Plan to address problem: IVF resuscitation therapy, monitor uop q shift, (6) DVT prophylaxis Current Visit: Yes Status: Acute Plan to address problem: SCD to BLE while in bed, prophylactic lovenox History Interval history: Patient seen and examined medical records reviewed Patient feels slightly better, no new complaints Vital signs noted Hospitalist Physical - Constitutional Vitals: Temp Pulse Resp BP Pulse Ox 98.1 F 74 22 137/83 92 10/20/19 17:31 10/20/19 17:31 10/20/19 17:31 10/20/19 17:31 10/20/19 17:31 General appearance: Present: no acute distress, well-nourished - EENT Eyes: Present: PERRL, EOM intact - Neck Neck: Present: supple, normal ROM - Respiratory Respiratory effort: normal Respiratory: bilateral: diminished, negative: rales, rhonchi, wheezing - Cardiovascular Rhythm: regular Heart Sounds: Present: S1 & S2 - Extremities Extremities: no ischemia, No edema - Abdominal General gastrointestinal: soft, non-tender, non-distended, normal bowel sounds - Integumentary Integumentary: Present: clear, warm - Psychiatric Psychiatric: appropriate mood/affect, cooperative - Neurologic Neurologic: other (residual weakness) Results - Labs CBC & Chem 7: 10/20/19 23:14 10/20/19 23:14 Labs: Laboratory Last Values WBC 13.4 K/mm3 (4.5-11.0) H 10/18/19 08:40 RBC 4.75 M/mm3 (3.65-5.03) 10/18/19 08:40 Hgb 15.2 gm/dl (11.8-15.2) 10/18/19 08:40 Hct 45.6 % (35.5-45.6) 10/18/19 08:40 MCV 96 fl (84-94) H 10/18/19 08:40 MCH 32 pg (28-32) 10/18/19 08:40 MCHC 33 % (32-34) 10/18/19 08:40 RDW 13.7 % (13.2-15.2) 10/18/19 08:40 Plt Count 232 K/mm3 (140-440) 10/18/19 08:40 Lymph % (Auto) TNR 10/18/19 07:20 [place] % (Auto) Ice Cream Mixer 10/18/19 08:40 Eos % (Auto) TNR 10/18/19 07:20 Baso % (Auto) TNR 10/18/19 07:20 Lymph # TNR 10/18/19 07:20 [place] # TNR 10/18/19 07:20 Eos # TNR 10/18/19 07:20 Baso # TNR 10/18/19 07:20 Add Manual Diff Complete 10/18/19 08:40 Total Counted 100 10/18/19 08:40 Seg Neutrophils % TNR 10/18/19 07:20 Seg Neuts % (Manual) 73.0 % (40.0-70.0) H 10/18/19 08:40 Band Neutrophils % 0 % 10/18/19 08:40 Lymphocytes % (Manual) 9.0 % (13.4-35.0) L 10/18/19 08:40 Reactive Lymphs % (Man) 0 % 10/18/19 08:40 Monocytes % (Manual) 18.0 % (0.0-7.3) H 10/18/19 08:40 Eosinophils % (Manual) 0 % (0.0-4.3) 10/18/19 08:40 Basophils % (Manual) 0 % (0.0-1.8) 10/18/19 08:40 Metamyelocytes % 0 % 10/18/19 08:40 Myelocytes % 0 % 10/18/19 08:40 Promyelocytes % 0 % 10/18/19 08:40 Blast Cells % 0 % 10/18/19 08:40 Nucleated RBC % Not Reportable 10/18/19 08:40 Seg Neutrophils # TNR 10/18/19 07:20 Seg Neutrophils # Man 9.8 K/mm3 (1.8-7.7) H 10/18/19 08:40 Band Neutrophils # 0.0 K/mm3 10/18/19 08:40 Lymphocytes # (Manual) 1.2 K/mm3 (1.2-5.4) 10/18/19 08:40 Abs React Lymphs (Man) 0.0 K/mm3 10/18/19 08:40 Monocytes # (Manual) 2.4 K/mm3 (0.0-0.8) H 10/18/19 08:40 Eosinophils # (Manual) 0.0 K/mm3 (0.0-0.4) 10/18/19 08:40 Basophils # (Manual) 0.0 K/mm3 (0.0-0.1) 10/18/19 08:40 Metamyelocytes # 0.0 K/mm3 10/18/19 08:40 Myelocytes # 0.0 K/mm3 10/18/19 08:40 Promyelocytes # 0.0 K/mm3 10/18/19 08:40 Blast Cells # 0.0 K/mm3 10/18/19 08:40 WBC Morphology Not Reportable 10/18/19 08:40 Hypersegmented Neuts Not Reportable 10/18/19 08:40 Hyposegmented Neuts Not Reportable 10/18/19 08:40 Hypogranular Neuts Not Reportable 10/18/19 08:40 Smudge Cells Not Reportable 10/18/19 08:40 Toxic Granulation Not Reportable 10/18/19 08:40 Toxic Vacuolation Not Reportable 10/18/19 08:40 Dohle Bodies Not Reportable 10/18/19 08:40 Pelger-Huet Anomaly Not Reportable 10/18/19 08:40 Fabrizio Rods Not Reportable 10/18/19 08:40 Platelet Estimate Consistent w auto 10/18/19 08:40 Clumped Platelets Few 10/18/19 08:40 Plt Clumps, EDTA Not Reportable 10/18/19 08:40 Large Platelets Not Reportable 10/18/19 08:40 Giant Platelets Not Reportable 10/18/19 08:40 Platelet Satelliting Not Reportable 10/18/19 08:40 Plt Morphology Comment Not Reportable 10/18/19 08:40 RBC Morphology Normal 10/18/19 08:40 Dimorphic RBCs Not Reportable 10/18/19 08:40 Polychromasia Not Reportable 10/18/19 08:40 Hypochromasia Not Reportable 10/18/19 08:40 Poikilocytosis Not Reportable 10/18/19 08:40 Anisocytosis Not Reportable 10/18/19 08:40 Microcytosis Not Reportable 10/18/19 08:40 Macrocytosis Not Reportable 10/18/19 08:40 Spherocytes Not Reportable 10/18/19 08:40 Pappenheimer Bodies Not Reportable 10/18/19 08:40 Sickle Cells Not Reportable 10/18/19 08:40 Target Cells Not Reportable 10/18/19 08:40 Tear Drop Cells Not Reportable 10/18/19 08:40 Ovalocytes Not Reportable 10/18/19 08:40 Helmet Cells Not Reportable 10/18/19 08:40 [place] Bodies Not Reportable 10/18/19 08:40 [place] Rings Not Reportable 10/18/19 08:40 [place] Cells Not Reportable 10/18/19 08:40 Bite Cells Not Reportable 10/18/19 08:40 Crenated Cell Not Reportable 10/18/19 08:40 Elliptocytes Not Reportable 10/18/19 08:40 Acanthocytes (Spur) Not Reportable 10/18/19 08:40 Rouleaux Not Reportable 10/18/19 08:40 Hemoglobin C Crystals Not Reportable 10/18/19 08:40 Schistocytes Not Reportable 10/18/19 08:40 Malaria parasites Not Reportable 10/18/19 08:40 Joey Bodies Not Reportable 10/18/19 08:40 Hem Pathologist Commnt No 10/18/19 08:40 Sodium 148 mmol/L (137-145) H 10/18/19 07:20 Potassium 4.0 mmol/L (3.6-5.0) 10/18/19 07:20 Chloride 112.7 mmol/L (98-107) H 10/18/19 07:20 Carbon Dioxide 20 mmol/L (22-30) L 10/18/19 07:20 Anion Gap 19 mmol/L 10/18/19 07:20 BUN 15 mg/dL (9-20) 10/18/19 07:20 Creatinine 1.7 mg/dL (0.8-1.5) H D 10/18/19 07:20 Estimated GFR 43 ml/min 10/18/19 07:20 BUN/Creatinine Ratio 9 % 10/18/19 07:20 Glucose 102 mg/dL (75-100) H 10/18/19 07:20 POC Glucose 104 (70-105) 10/20/19 16:45 Lactic Acid 1.40 mmol/L (0.7-2.0) 10/15/19 21:33 Calcium 8.4 mg/dL (8.4-10.2) 10/18/19 07:20 Magnesium 2.60 mg/dL (1.7-2.3) H 10/15/19 06:00 Total Bilirubin 0.30 mg/dL (0.1-1.2) 10/18/19 07:20 AST 21 units/L (5-40) 10/18/19 07:20 ALT 18 units/L (7-56) 10/18/19 07:20 Alkaline Phosphatase 71 units/L (35-129) 10/18/19 07:20 Total Protein 6.8 g/dL (6.3-8.2) 10/18/19 07:20 Albumin 3.2 g/dL (3.9-5) L 10/18/19 07:20 Albumin/Globulin Ratio 0.9 % 10/18/19 07:20 Urine Color Yellow (Yellow) 10/15/19 Unknown Urine Turbidity Clear (Clear) 10/15/19 Unknown Urine pH 5.0 (5.0-7.0) 10/15/19 Unknown Ur Specific [place] 1.018 (1.003-1.030) 10/15/19 Unknown Urine Protein 30 mg/dl mg/dL (Negative) 10/15/19 Unknown Urine Glucose (UA) Neg mg/dL (Negative) 10/15/19 Unknown Urine Ketones Neg mg/dL (Negative) 10/15/19 Unknown Urine Blood Mod (Negative) 10/15/19 Unknown Urine Nitrite Neg (Negative) 10/15/19 Unknown Urine Bilirubin Neg (Negative) 10/15/19 Unknown Urine Urobilinogen < 2.0 mg/dL (<2.0) 10/15/19 Unknown Ur Leukocyte Esterase Neg (Negative) 10/15/19 Unknown Urine WBC (Auto) 3.0 /HPF (0.0-6.0) 10/15/19 Unknown Urine RBC (Auto) 6.0 /HPF (0.0-6.0) 10/15/19 Unknown U Epithel Cells (Auto) < 1.0 /HPF (0-13.0) 10/15/19 Unknown Urine Bacteria (Auto) 1+ /HPF (Negative) 10/15/19 Unknown Hyaline Casts 1 /LPF 10/15/19 Unknown Urine Mucus Few /HPF 10/15/19 Unknown CSF Appearance Cloudy 10/15/19 10:45 CSF Color Bloody 10/15/19 10:45 CSF WBC 1250 /mm3 (1-10) 10/15/19 10:45 CSF RBC 53232 /mm3 (0-0) 10/15/19 10:45 CSF Seg Neutrophils 90 % (0-6) 10/15/19 10:45 CSF Lymphocytes % 10 % (40-80) 10/15/19 10:45 CSF Reactive Lymphs 0 % 10/15/19 10:45 CSF Monocytes % 0 % (15-45) 10/15/19 10:45 CSF Eosinophils % 0 % 10/15/19 10:45 CSF Basophils 0 % 10/15/19 10:45 CSF Pathologist Review C 10/15/19 10:45 CSF Glucose 102 mg/dL 10/15/19 10:45 CSF Total Protein 166 mg/dL 10/15/19 10:45 CSF VDRL Nonreactive (Nonreactive) 10/15/19 10:45 Urine Opiates Screen Presumptive negative 10/15/19 Unknown Urine Methadone Screen Presumptive negative 10/15/19 Unknown Ur Barbiturates Screen Presumptive negative 10/15/19 Unknown Phenytoin 5.9 ug/mL (10.0-20.0) L 10/16/19 06:30 Ur Phencyclidine Scrn Presumptive negative 10/15/19 Unknown Ur Amphetamines Screen Presumptive negative 10/15/19 Unknown U Benzodiazepines Scrn Presumptive negative 10/15/19 Unknown Urine Cocaine Screen Presumptive negative 10/15/19 Unknown U Marijuana (THC) Screen Presumptive negative 10/15/19 Unknown Drugs of Abuse Note Disclamer 10/15/19 Unknown Plasma/Serum Alcohol < 0.01 % (0-0.07) 10/15/19 06:00 Active Medications - Current Medications Current Medications: Generic Name Dose Route Start Last Admin Trade Name Freq PRN Reason Stop Dose Admin Acetaminophen 650 mg 10/15/19 13:18 10/20/19 10:57 Tylenol PO 650 mg Q4H PRN Administration Pain MILD(1-3)/Fever >100.5/[place] Albuterol 2.5 mg 10/15/19 13:18 Proventil IH Q4HRT PRN Shortness Of Breath Enoxaparin Sodium 40 mg 10/15/19 22:00 10/19/19 21:53 Enoxaparin SUB-Q 40 mg QDAY@2200 MELLO Administration Acyclovir 500 mg/ Sodium 110 mls @ 100 mls/hr 10/18/19 18:00 10/20/19 17:37 Chloride IV 100 mls/hr Q12H MELLO Administration Protocol Lorazepam 2 mg 10/19/19 15:14 10/19/19 15:25 Ativan IV 2 mg Q3H PRN Administration Agitation Ondansetron HCl 4 mg 10/15/19 13:18 Zofran IV Q8H PRN Nausea And Vomiting Sodium Chloride 10 ml 10/15/19 22:00 10/20/19 10:08 Sodium Chloride Flush Syringe 10 Ml IV 10 ml BID MELLO Administration Sodium Chloride 10 ml 10/15/19 13:18 Sodium Chloride Flush Syringe 10 Ml IV PRN PRN LINE FLUSH Nutrition/Malnutrition Assess - Dietary Evaluation Nutrition/Malnutrition Findings: Nutrition Notes Start: 10/20/19 10:47 Freq: Status: Active Protocol: Document 10/20/19 10:47 AP (Rec: 10/20/19 11:15 AP [id number]) Co-Sign 10/20/19 10:47 LM Nutrition Notes Need for Assessment generated from: LOS Initial or Follow up Brief Note Current Diagnosis Diabetes,Sepsis Other Pertinent Diagnosis epilepsy, CVA, encephalopathy Current Diet Regular Labs/Tests Na 148 Cr 1.7 BG 109 Pertinent Medications .5 NS at 100ml/hr Colace Height 6 ft Weight 96.2 kg [place] Body Weight (kg) 80.90 BMI 28.8 Intake Prior to Admission Good Weight Status Overweight Subjective/Other Information Assess for LOS. Pt consumed 100% of bfast tray. Pt missing teeth. Burn Absent Trauma Absent Current % PO Good (75-100%) Minimum of two criteria No physical signs of malnutrition Nutrition Intervention Revisit per MD consult or patient Sign Off request:
[2019-10-20] MEDS: LORazepam 2 MG/ML VIAL IV PRN (20:20)
[2019-10-20] MEDS: PHENYTOIN 100 MG CAPSULE.ER PO SCH (23:02)
[2019-10-20] MEDS: ENOXAPARIN 40 MG/0.4 ML INJ SUB-Q SCH (23:03)
[2019-10-20 23:43] LABS: Basophils # (Auto) 0.1 K/mm3 (0.0-0.1); Basophils % (Auto) 0.5 % (0.0-1.8); Eosinophils # (Auto) 0.4 K/mm3 (0.0-0.4); Eosinophils % (Auto) 3.6 % (0.0-4.3); Hematocrit 42.6 % (35.5-45.6); Hemoglobin 14.2 gm/dl (11.8-15.2); Lymphocytes # (Auto) 1.2 K/mm3 (1.2-5.4); Lymphocytes % (Auto) 10.6 % (13.4-35.0); Mean Corpuscular HGB Conc 33 % (32-34); Mean Corpuscular Volume 94 fl (84-94); Monocytes # (Auto) 1.3 K/mm3 (0.0-0.8); Monocytes % (Auto) 11.2 % (0.0-7.3); Platelet Count 285 K/mm3 (140-440); Red Blood Count 4.52 M/mm3 (3.65-5.03); Red Cell Distribution Width 13.5 % (13.2-15.2)
[2019-10-21 00:05] LABS: Calcium 8.5 mg/dL (8.4-10.2)
[2019-10-21] MEDS: PHENYTOIN 100 MG CAPSULE.ER PO SCH ×2 (09:45→21:20)
[2019-10-21] MEDS ORDERED: PHENYTOIN SODIUM 400 MG PO SCH (10:00)
[2019-10-21] MEDS: SERTRALINE 50 MG TAB PO SCH (11:43)
--- NOTE | 2019-10-21 11:54 | Progress Note ---
Assessment and Plan Assessment and plan: -- Sepsis/possible meningitis Current Visit: Yes Status: Acute Sepsis Protocol: serial lactic acid, IVF resuscitation therapy, CBC, CMP, chest x ray, urinalysis, blood cultures, s/p LP, follow fluid analysis, on IV acyclovir, ID following --Acute kidney injury; vasomotor nephropathy Current Visit: Yes Status: Acute Significantly improved, avoid nephrotoxins --Seizure disorder Current Visit: Yes Status: Acute Plan to address problem: Dilantin level, supportive care, Keppra loading dose, repeat dilantin level in AM. Resume prehospital AED therapy -- Encephalopathy Current Visit: Yes Status: Acute CT head, neuro check, aspiration precautions, seizure precautions, cmp, -- Hypernatremia Current Visit: Yes Status: Acute IVF resuscitation therapy, repeat bmp, -- Volume depletion Current Visit: Yes Status: Acute IVF resuscitation therapy, monitor uop q shift, -- DVT prophylaxis Current Visit: Yes Status: Acute SCD to BLE while in bed, prophylactic lovenox History Interval history: Patient Seen and examined medical records reviewed No New complaints vital signs reviewed Hospitalist Physical - Constitutional Vitals: Temp Pulse Resp BP Pulse Ox 98.6 F 84 17 115/67 92 10/21/19 05:26 10/21/19 05:26 10/21/19 05:26 10/21/19 05:26 10/21/19 05:26 General appearance: Present: no acute distress, well-nourished - EENT Eyes: Present: PERRL, EOM intact - Neck Neck: Present: supple, normal ROM - Respiratory Respiratory effort: normal Respiratory: bilateral: diminished, negative: rales, rhonchi, wheezing - Cardiovascular Rhythm: regular Heart Sounds: Present: S1 & S2 - Extremities Extremities: no ischemia, No edema - Abdominal General gastrointestinal: soft, non-tender, non-distended, normal bowel sounds - Integumentary Integumentary: Present: clear, warm - Psychiatric Psychiatric: appropriate mood/affect, cooperative - Neurologic Neurologic: moves all extremities Results - Labs CBC & Chem 7: 10/22/19 Unknown 10/20/19 23:14 Labs: Laboratory Last Values WBC 11.3 K/mm3 (4.5-11.0) H 10/20/19 23:14 RBC 4.52 M/mm3 (3.65-5.03) 10/20/19 23:14 Hgb 14.2 gm/dl (11.8-15.2) 10/20/19 23:14 Hct 42.6 % (35.5-45.6) 10/20/19 23:14 MCV 94 fl (84-94) 10/20/19 23:14 MCH 32 pg (28-32) 10/20/19 23:14 MCHC 33 % (32-34) 10/20/19 23:14 RDW 13.5 % (13.2-15.2) 10/20/19 23:14 Plt Count 285 K/mm3 (140-440) 10/20/19 23:14 Lymph % (Auto) 10.6 % (13.4-35.0) L 10/20/19 23:14 [place] % (Auto) 11.2 % (0.0-7.3) H 10/20/19 23:14 Eos % (Auto) 3.6 % (0.0-4.3) 10/20/19 23:14 Baso % (Auto) 0.5 % (0.0-1.8) 10/20/19 23:14 Lymph # 1.2 K/mm3 (1.2-5.4) 10/20/19 23:14 [place] # 1.3 K/mm3 (0.0-0.8) H 10/20/19 23:14 Eos # 0.4 K/mm3 (0.0-0.4) 10/20/19 23:14 Baso # 0.1 K/mm3 (0.0-0.1) 10/20/19 23:14 Add Manual Diff Complete 10/18/19 08:40 Total Counted 100 10/18/19 08:40 Seg Neutrophils % 74.1 % (40.0-70.0) H 10/20/19 23:14 Seg Neuts % (Manual) 73.0 % (40.0-70.0) H 10/18/19 08:40 Band Neutrophils % 0 % 10/18/19 08:40 Lymphocytes % (Manual) 9.0 % (13.4-35.0) L 10/18/19 08:40 Reactive Lymphs % (Man) 0 % 10/18/19 08:40 Monocytes % (Manual) 18.0 % (0.0-7.3) H 10/18/19 08:40 Eosinophils % (Manual) 0 % (0.0-4.3) 10/18/19 08:40 Basophils % (Manual) 0 % (0.0-1.8) 10/18/19 08:40 Metamyelocytes % 0 % 10/18/19 08:40 Myelocytes % 0 % 10/18/19 08:40 Promyelocytes % 0 % 10/18/19 08:40 Blast Cells % 0 % 10/18/19 08:40 Nucleated RBC % Not Reportable 10/18/19 08:40 Seg Neutrophils # 8.4 K/mm3 (1.8-7.7) H 10/20/19 23:14 Seg Neutrophils # Man 9.8 K/mm3 (1.8-7.7) H 10/18/19 08:40 Band Neutrophils # 0.0 K/mm3 10/18/19 08:40 Lymphocytes # (Manual) 1.2 K/mm3 (1.2-5.4) 10/18/19 08:40 Abs React Lymphs (Man) 0.0 K/mm3 10/18/19 08:40 Monocytes # (Manual) 2.4 K/mm3 (0.0-0.8) H 10/18/19 08:40 Eosinophils # (Manual) 0.0 K/mm3 (0.0-0.4) 10/18/19 08:40 Basophils # (Manual) 0.0 K/mm3 (0.0-0.1) 10/18/19 08:40 Metamyelocytes # 0.0 K/mm3 10/18/19 08:40 Myelocytes # 0.0 K/mm3 10/18/19 08:40 Promyelocytes # 0.0 K/mm3 10/18/19 08:40 Blast Cells # 0.0 K/mm3 10/18/19 08:40 WBC Morphology Not Reportable 10/18/19 08:40 Hypersegmented Neuts Not Reportable 10/18/19 08:40 Hyposegmented Neuts Not Reportable 10/18/19 08:40 Hypogranular Neuts Not Reportable 10/18/19 08:40 Smudge Cells Not Reportable 10/18/19 08:40 Toxic Granulation Not Reportable 10/18/19 08:40 Toxic Vacuolation Not Reportable 10/18/19 08:40 Dohle Bodies Not Reportable 10/18/19 08:40 Pelger-Huet Anomaly Not Reportable 10/18/19 08:40 Fabrizio Rods Not Reportable 10/18/19 08:40 Platelet Estimate Consistent w auto 10/18/19 08:40 Clumped Platelets Few 10/18/19 08:40 Plt Clumps, EDTA Not Reportable 10/18/19 08:40 Large Platelets Not Reportable 10/18/19 08:40 Giant Platelets Not Reportable 10/18/19 08:40 Platelet Satelliting Not Reportable 10/18/19 08:40 Plt Morphology Comment Not Reportable 10/18/19 08:40 RBC Morphology Normal 10/18/19 08:40 Dimorphic RBCs Not Reportable 10/18/19 08:40 Polychromasia Not Reportable 10/18/19 08:40 Hypochromasia Not Reportable 10/18/19 08:40 Poikilocytosis Not Reportable 10/18/19 08:40 Anisocytosis Not Reportable 10/18/19 08:40 Microcytosis Not Reportable 10/18/19 08:40 Macrocytosis Not Reportable 10/18/19 08:40 Spherocytes Not Reportable 10/18/19 08:40 Pappenheimer Bodies Not Reportable 10/18/19 08:40 Sickle Cells Not Reportable 10/18/19 08:40 Target Cells Not Reportable 10/18/19 08:40 Tear Drop Cells Not Reportable 10/18/19 08:40 Ovalocytes Not Reportable 10/18/19 08:40 Helmet Cells Not Reportable 10/18/19 08:40 [place] Bodies Not Reportable 10/18/19 08:40 [place] Rings Not Reportable 10/18/19 08:40 [place] Cells Not Reportable 10/18/19 08:40 Bite Cells Not Reportable 10/18/19 08:40 Crenated Cell Not Reportable 10/18/19 08:40 Elliptocytes Not Reportable 10/18/19 08:40 Acanthocytes (Spur) Not Reportable 10/18/19 08:40 Rouleaux Not Reportable 10/18/19 08:40 Hemoglobin C Crystals Not Reportable 10/18/19 08:40 Schistocytes Not Reportable 10/18/19 08:40 Malaria parasites Not Reportable 10/18/19 08:40 Joey Bodies Not Reportable 10/18/19 08:40 Hem Pathologist Commnt No 10/18/19 08:40 Sodium 143 mmol/L (137-145) 10/20/19 23:14 Potassium 4.0 mmol/L (3.6-5.0) 10/20/19 23:14 Chloride 106.4 mmol/L (98-107) 10/20/19 23:14 Carbon Dioxide 19 mmol/L (22-30) L 10/20/19 23:14 Anion Gap 22 mmol/L 10/20/19 23:14 BUN 21 mg/dL (9-20) H 10/20/19 23:14 Creatinine 1.5 mg/dL (0.8-1.5) 10/20/19 23:14 Estimated GFR 50 ml/min 10/20/19 23:14 BUN/Creatinine Ratio 14 % 10/20/19 23:14 Glucose 106 mg/dL (75-100) H 10/20/19 23:14 POC Glucose 106 (70-105) H 10/21/19 11:27 Lactic Acid 1.40 mmol/L (0.7-2.0) 10/15/19 21:33 Calcium 8.5 mg/dL (8.4-10.2) 10/20/19 23:14 Magnesium 2.60 mg/dL (1.7-2.3) H 10/15/19 06:00 Total Bilirubin 0.30 mg/dL (0.1-1.2) 10/18/19 07:20 AST 21 units/L (5-40) 10/18/19 07:20 ALT 18 units/L (7-56) 10/18/19 07:20 Alkaline Phosphatase 71 units/L (35-129) 10/18/19 07:20 Total Protein 6.8 g/dL (6.3-8.2) 10/18/19 07:20 Albumin 3.2 g/dL (3.9-5) L 10/18/19 07:20 Albumin/Globulin Ratio 0.9 % 10/18/19 07:20 Urine Color Yellow (Yellow) 10/15/19 Unknown Urine Turbidity Clear (Clear) 10/15/19 Unknown Urine pH 5.0 (5.0-7.0) 10/15/19 Unknown Ur Specific [place] 1.018 (1.003-1.030) 10/15/19 Unknown Urine Protein 30 mg/dl mg/dL (Negative) 10/15/19 Unknown Urine Glucose (UA) Neg mg/dL (Negative) 10/15/19 Unknown Urine Ketones Neg mg/dL (Negative) 10/15/19 Unknown Urine Blood Mod (Negative) 10/15/19 Unknown Urine Nitrite Neg (Negative) 10/15/19 Unknown Urine Bilirubin Neg (Negative) 10/15/19 Unknown Urine Urobilinogen < 2.0 mg/dL (<2.0) 10/15/19 Unknown Ur Leukocyte Esterase Neg (Negative) 10/15/19 Unknown Urine WBC (Auto) 3.0 /HPF (0.0-6.0) 10/15/19 Unknown Urine RBC (Auto) 6.0 /HPF (0.0-6.0) 10/15/19 Unknown U Epithel Cells (Auto) < 1.0 /HPF (0-13.0) 10/15/19 Unknown Urine Bacteria (Auto) 1+ /HPF (Negative) 10/15/19 Unknown Hyaline Casts 1 /LPF 10/15/19 Unknown Urine Mucus Few /HPF 10/15/19 Unknown CSF Appearance Cloudy 10/15/19 10:45 CSF Color Bloody 10/15/19 10:45 CSF WBC 1250 /mm3 (1-10) 10/15/19 10:45 CSF RBC 91951 /mm3 (0-0) 10/15/19 10:45 CSF Seg Neutrophils 90 % (0-6) 10/15/19 10:45 CSF Lymphocytes % 10 % (40-80) 10/15/19 10:45 CSF Reactive Lymphs 0 % 10/15/19 10:45 CSF Monocytes % 0 % (15-45) 10/15/19 10:45 CSF Eosinophils % 0 % 10/15/19 10:45 CSF Basophils 0 % 10/15/19 10:45 CSF Pathologist Review C 10/15/19 10:45 CSF Glucose 102 mg/dL 10/15/19 10:45 CSF Total Protein 166 mg/dL 10/15/19 10:45 CSF VDRL Nonreactive (Nonreactive) 10/15/19 10:45 Urine Opiates Screen Presumptive negative 10/15/19 Unknown Urine Methadone Screen Presumptive negative 10/15/19 Unknown Ur Barbiturates Screen Presumptive negative 10/15/19 Unknown Phenytoin 5.9 ug/mL (10.0-20.0) L 10/16/19 06:30 Ur Phencyclidine Scrn Presumptive negative 10/15/19 Unknown Ur Amphetamines Screen Presumptive negative 10/15/19 Unknown U Benzodiazepines Scrn Presumptive negative 10/15/19 Unknown Urine Cocaine Screen Presumptive negative 10/15/19 Unknown U Marijuana (THC) Screen Presumptive negative 10/15/19 Unknown Drugs of Abuse Note Disclamer 10/15/19 Unknown Plasma/Serum Alcohol < 0.01 % (0-0.07) 10/15/19 06:00 Active Medications - Current Medications Current Medications: Generic Name Dose Route Start Last Admin Trade Name Freq PRN Reason Stop Dose Admin Acetaminophen 650 mg 10/15/19 13:18 10/20/19 10:57 Tylenol PO 650 mg Q4H PRN Administration Pain MILD(1-3)/Fever >100.5/[place] Albuterol 2.5 mg 10/15/19 13:18 Proventil IH Q4HRT PRN Shortness Of Breath Enoxaparin Sodium 40 mg 10/15/19 22:00 10/20/19 23:03 Enoxaparin SUB-Q 40 mg QDAY@2200 MELLO Administration Acyclovir 500 mg/ Sodium 110 mls @ 100 mls/hr 10/18/19 18:00 10/20/19 17:37 Chloride IV 100 mls/hr Q12H MELLO Administration Protocol Lorazepam 2 mg 10/19/19 15:14 10/20/19 20:20 Ativan IV 2 mg Q3H PRN Administration Agitation Ondansetron HCl 4 mg 10/15/19 13:18 Zofran IV Q8H PRN Nausea And Vomiting Phenytoin 400 mg 10/21/19 10:00 10/21/19 09:45 Dilantin PO 400 mg QAM MELLO Administration Phenytoin 600 mg 10/20/19 22:00 10/20/19 23:02 Dilantin PO 600 mg QHS MELLO Administration Sertraline HCl 50 mg 10/21/19 12:00 10/21/19 11:43 Zoloft PO 50 mg DAILY MELLO Administration Sodium Chloride 10 ml 10/15/19 22:00 10/21/19 09:46 Sodium Chloride Flush Syringe 10 Ml IV 10 ml BID MELLO Administration Sodium Chloride 10 ml 10/15/19 13:18 Sodium Chloride Flush Syringe 10 Ml IV PRN PRN LINE FLUSH Nutrition/Malnutrition Assess - Dietary Evaluation Nutrition/Malnutrition Findings: Nutrition Notes Start: 10/20/19 10:47 Freq: Status: Active Protocol: Document 10/20/19 10:47 AP (Rec: 10/20/19 11:15 AP [id number]) Co-Sign 10/20/19 10:47 LM Nutrition Notes Need for Assessment generated from: LOS Initial or Follow up Brief Note Current Diagnosis Diabetes,Sepsis Other Pertinent Diagnosis epilepsy, CVA, encephalopathy Current Diet Regular Labs/Tests Na 148 Cr 1.7 BG 109 Pertinent Medications .5 NS at 100ml/hr Colace Height 6 ft Weight 96.2 kg [place] Body Weight (kg) 80.90 BMI 28.8 Intake Prior to Admission Good Weight Status Overweight Subjective/Other Information Assess for LOS. Pt consumed 100% of bfast tray. Pt missing teeth. Burn Absent Trauma Absent Current % PO Good (75-100%) Minimum of two criteria No physical signs of malnutrition Nutrition Intervention Revisit per MD consult or patient Sign Off request:
[2019-10-21] MEDS: ACYCLOVIR 500 MG in SODIUM CHLORIDE 0.9% 100 ML IV SCH ×2 (12:55→23:27)
[2019-10-21] MEDS ORDERED: PHENYTOIN SODIUM 600 MG PO SCH (18:00)
[2019-10-21] MEDS: ENOXAPARIN 40 MG/0.4 ML INJ SUB-Q SCH (21:21)
[2019-10-22 06:17] LABS: Basophils # (Auto) 0.1 K/mm3 (0.0-0.1); Basophils % (Auto) 0.6 % (0.0-1.8); Eosinophils # (Auto) 0.6 K/mm3 (0.0-0.4); Eosinophils % (Auto) 6.4 % (0.0-4.3); Hematocrit 38.9 % (35.5-45.6); Hemoglobin 13.3 gm/dl (11.8-15.2); Lymphocytes # (Auto) 1.7 K/mm3 (1.2-5.4); Lymphocytes % (Auto) 19.9 % (13.4-35.0); Mean Corpuscular HGB Conc 34 % (32-34); Mean Corpuscular Volume 94 fl (84-94); Monocytes # (Auto) 1.2 K/mm3 (0.0-0.8); Monocytes % (Auto) 13.8 % (0.0-7.3); Platelet Count 297 K/mm3 (140-440); Red Blood Count 4.14 M/mm3 (3.65-5.03); Red Cell Distribution Width 13.2 % (13.2-15.2)
[2019-10-22] MEDS: PHENYTOIN 100 MG CAPSULE.ER PO SCH ×2 (09:23→23:06)
[2019-10-22] MEDS: SERTRALINE 50 MG TAB PO SCH (09:23)
[2019-10-22] MEDS ORDERED: PHENYTOIN 100 MG CAPSULE.ER PO SCH (11:15)
--- NOTE | 2019-10-22 11:16 | Progress Note ---
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 Check micro-lab tomorrow S/P LP,CSF analysis: CSF VDRL: Nonreactive Blood culture: No growth CSF culture: no growth after 72 hours CSF Crypto Ag: negative --Acute kidney injury; vasomotor nephropathy Current Visit: Yes Status: Acute Significantly improved, avoid nephrotoxins --Seizure disorder Current Visit: Yes Status: Acute Plan to address problem: Dilantin level, supportive care, Keppra loading dose, repeat dilantin level in AM. Resume prehospital AED therapy -- Encephalopathy Current Visit: Yes Status: Acute CT head, neuro check, aspiration precautions, seizure precautions, cmp, -- Hypernatremia Current Visit: Yes Status: Acute IVF resuscitation therapy, repeat bmp, -- Volume depletion Current Visit: Yes Status: Acute IVF resuscitation therapy, monitor uop q shift, -- DVT prophylaxis Current Visit: Yes Status: Acute SCD to BLE while in bed, prophylactic lovenox Monitor closely and adjust the management as needed Possible discharge when HSV PCR result of CSF is available Of care reviewed with the patient and his nurse History Interval history: Patient seen and examined medical records reviewed Patient feels slightly better alert and awake and responding appropriately Vital signs noted Awaiting CSF HSV PCR results On empiric acyclovir Hospitalist Physical - Constitutional Vitals: Temp Pulse Resp BP Pulse Ox 98.0 F 76 16 132/75 97 10/22/19 04:45 10/22/19 04:45 10/22/19 07:15 10/22/19 04:45 10/22/19 08:51 General appearance: Present: no acute distress, well-nourished - EENT Eyes: Present: PERRL, EOM intact - Neck Neck: Present: supple, normal ROM - Respiratory Respiratory effort: normal Respiratory: bilateral: diminished, negative: rales, rhonchi, wheezing - Cardiovascular Rhythm: regular Heart Sounds: Present: S1 & S2 - Extremities Extremities: no ischemia, No edema - Abdominal General gastrointestinal: soft, non-tender, non-distended, normal bowel sounds - Integumentary Integumentary: Present: clear, warm - Psychiatric Psychiatric: appropriate mood/affect, cooperative - Neurologic Neurologic: moves all extremities Results - Labs CBC & Chem 7: 11/24/19 Unknown 10/20/19 23:14 Labs: Laboratory Last Values WBC 8.7 K/mm3 (4.5-11.0) 10/22/19 Unknown RBC 4.14 M/mm3 (3.65-5.03) 10/22/19 Unknown Hgb 13.3 gm/dl (11.8-15.2) 10/22/19 Unknown Hct 38.9 % (35.5-45.6) 10/22/19 Unknown MCV 94 fl (84-94) 10/22/19 Unknown MCH 32 pg (28-32) 10/22/19 Unknown MCHC 34 % (32-34) 10/22/19 Unknown RDW 13.2 % (13.2-15.2) 10/22/19 Unknown Plt Count 297 K/mm3 (140-440) 10/22/19 Unknown Lymph % (Auto) 19.9 % (13.4-35.0) 10/22/19 Unknown [place] % (Auto) 13.8 % (0.0-7.3) H 10/22/19 Unknown Eos % (Auto) 6.4 % (0.0-4.3) H 10/22/19 Unknown Baso % (Auto) 0.6 % (0.0-1.8) 10/22/19 Unknown Lymph # 1.7 K/mm3 (1.2-5.4) 10/22/19 Unknown [place] # 1.2 K/mm3 (0.0-0.8) H 10/22/19 Unknown Eos # 0.6 K/mm3 (0.0-0.4) H 10/22/19 Unknown Baso # 0.1 K/mm3 (0.0-0.1) 10/22/19 Unknown Add Manual Diff Complete 10/18/19 08:40 Total Counted 100 10/18/19 08:40 Seg Neutrophils % 59.3 % (40.0-70.0) 10/22/19 Unknown Seg Neuts % (Manual) 73.0 % (40.0-70.0) H 10/18/19 08:40 Band Neutrophils % 0 % 10/18/19 08:40 Lymphocytes % (Manual) 9.0 % (13.4-35.0) L 10/18/19 08:40 Reactive Lymphs % (Man) 0 % 10/18/19 08:40 Monocytes % (Manual) 18.0 % (0.0-7.3) H 10/18/19 08:40 Eosinophils % (Manual) 0 % (0.0-4.3) 10/18/19 08:40 Basophils % (Manual) 0 % (0.0-1.8) 10/18/19 08:40 Metamyelocytes % 0 % 10/18/19 08:40 Myelocytes % 0 % 10/18/19 08:40 Promyelocytes % 0 % 10/18/19 08:40 Blast Cells % 0 % 10/18/19 08:40 Nucleated RBC % Not Reportable 10/18/19 08:40 Seg Neutrophils # 5.2 K/mm3 (1.8-7.7) 10/22/19 Unknown Seg Neutrophils # Man 9.8 K/mm3 (1.8-7.7) H 10/18/19 08:40 Band Neutrophils # 0.0 K/mm3 10/18/19 08:40 Lymphocytes # (Manual) 1.2 K/mm3 (1.2-5.4) 10/18/19 08:40 Abs React Lymphs (Man) 0.0 K/mm3 10/18/19 08:40 Monocytes # (Manual) 2.4 K/mm3 (0.0-0.8) H 10/18/19 08:40 Eosinophils # (Manual) 0.0 K/mm3 (0.0-0.4) 10/18/19 08:40 Basophils # (Manual) 0.0 K/mm3 (0.0-0.1) 10/18/19 08:40 Metamyelocytes # 0.0 K/mm3 10/18/19 08:40 Myelocytes # 0.0 K/mm3 10/18/19 08:40 Promyelocytes # 0.0 K/mm3 10/18/19 08:40 Blast Cells # 0.0 K/mm3 10/18/19 08:40 WBC Morphology Not Reportable 10/18/19 08:40 Hypersegmented Neuts Not Reportable 10/18/19 08:40 Hyposegmented Neuts Not Reportable 10/18/19 08:40 Hypogranular Neuts Not Reportable 10/18/19 08:40 Smudge Cells Not Reportable 10/18/19 08:40 Toxic Granulation Not Reportable 10/18/19 08:40 Toxic Vacuolation Not Reportable 10/18/19 08:40 Dohle Bodies Not Reportable 10/18/19 08:40 Pelger-Huet Anomaly Not Reportable 10/18/19 08:40 Fabrizio Rods Not Reportable 10/18/19 08:40 Platelet Estimate Consistent w auto 10/18/19 08:40 Clumped Platelets Few 10/18/19 08:40 Plt Clumps, EDTA Not Reportable 10/18/19 08:40 Large Platelets Not Reportable 10/18/19 08:40 Giant Platelets Not Reportable 10/18/19 08:40 Platelet Satelliting Not Reportable 10/18/19 08:40 Plt Morphology Comment Not Reportable 10/18/19 08:40 RBC Morphology Normal 10/18/19 08:40 Dimorphic RBCs Not Reportable 10/18/19 08:40 Polychromasia Not Reportable 10/18/19 08:40 Hypochromasia Not Reportable 10/18/19 08:40 Poikilocytosis Not Reportable 10/18/19 08:40 Anisocytosis Not Reportable 10/18/19 08:40 Microcytosis Not Reportable 10/18/19 08:40 Macrocytosis Not Reportable 10/18/19 08:40 Spherocytes Not Reportable 10/18/19 08:40 Pappenheimer Bodies Not Reportable 10/18/19 08:40 Sickle Cells Not Reportable 10/18/19 08:40 Target Cells Not Reportable 10/18/19 08:40 Tear Drop Cells Not Reportable 10/18/19 08:40 Ovalocytes Not Reportable 10/18/19 08:40 Helmet Cells Not Reportable 10/18/19 08:40 [place] Bodies Not Reportable 10/18/19 08:40 [place] Rings Not Reportable 10/18/19 08:40 [place] Cells Not Reportable 10/18/19 08:40 Bite Cells Not Reportable 10/18/19 08:40 Crenated Cell Not Reportable 10/18/19 08:40 Elliptocytes Not Reportable 10/18/19 08:40 Acanthocytes (Spur) Not Reportable 10/18/19 08:40 Rouleaux Not Reportable 10/18/19 08:40 Hemoglobin C Crystals Not Reportable 10/18/19 08:40 Schistocytes Not Reportable 10/18/19 08:40 Malaria parasites Not Reportable 10/18/19 08:40 Joey Bodies Not Reportable 10/18/19 08:40 Hem Pathologist Commnt No 10/18/19 08:40 Sodium 143 mmol/L (137-145) 10/20/19 23:14 Potassium 4.0 mmol/L (3.6-5.0) 10/20/19 23:14 Chloride 106.4 mmol/L (98-107) 10/20/19 23:14 Carbon Dioxide 19 mmol/L (22-30) L 10/20/19 23:14 Anion Gap 22 mmol/L 10/20/19 23:14 BUN 21 mg/dL (9-20) H 10/20/19 23:14 Creatinine 1.5 mg/dL (0.8-1.5) 10/20/19 23:14 Estimated GFR 50 ml/min 10/20/19 23:14 BUN/Creatinine Ratio 14 % 10/20/19 23:14 Glucose 106 mg/dL (75-100) H 10/20/19 23:14 POC Glucose 95 (70-105) 10/22/19 11:16 Lactic Acid 1.40 mmol/L (0.7-2.0) 10/15/19 21:33 Calcium 8.5 mg/dL (8.4-10.2) 10/20/19 23:14 Magnesium 2.60 mg/dL (1.7-2.3) H 10/15/19 06:00 Total Bilirubin 0.30 mg/dL (0.1-1.2) 10/18/19 07:20 AST 21 units/L (5-40) 10/18/19 07:20 ALT 18 units/L (7-56) 10/18/19 07:20 Alkaline Phosphatase 71 units/L (35-129) 10/18/19 07:20 Total Protein 6.8 g/dL (6.3-8.2) 10/18/19 07:20 Albumin 3.2 g/dL (3.9-5) L 10/18/19 07:20 Albumin/Globulin Ratio 0.9 % 10/18/19 07:20 Urine Color Yellow (Yellow) 10/15/19 Unknown Urine Turbidity Clear (Clear) 10/15/19 Unknown Urine pH 5.0 (5.0-7.0) 10/15/19 Unknown Ur Specific [place] 1.018 (1.003-1.030) 10/15/19 Unknown Urine Protein 30 mg/dl mg/dL (Negative) 10/15/19 Unknown Urine Glucose (UA) Neg mg/dL (Negative) 10/15/19 Unknown Urine Ketones Neg mg/dL (Negative) 10/15/19 Unknown Urine Blood Mod (Negative) 10/15/19 Unknown Urine Nitrite Neg (Negative) 10/15/19 Unknown Urine Bilirubin Neg (Negative) 10/15/19 Unknown Urine Urobilinogen < 2.0 mg/dL (<2.0) 10/15/19 Unknown Ur Leukocyte Esterase Neg (Negative) 10/15/19 Unknown Urine WBC (Auto) 3.0 /HPF (0.0-6.0) 10/15/19 Unknown Urine RBC (Auto) 6.0 /HPF (0.0-6.0) 10/15/19 Unknown U Epithel Cells (Auto) < 1.0 /HPF (0-13.0) 10/15/19 Unknown Urine Bacteria (Auto) 1+ /HPF (Negative) 10/15/19 Unknown Hyaline Casts 1 /LPF 10/15/19 Unknown Urine Mucus Few /HPF 10/15/19 Unknown CSF Appearance Cloudy 10/15/19 10:45 CSF Color Bloody 10/15/19 10:45 CSF WBC 1250 /mm3 (1-10) 10/15/19 10:45 CSF RBC 53776 /mm3 (0-0) 10/15/19 10:45 CSF Seg Neutrophils 90 % (0-6) 10/15/19 10:45 CSF Lymphocytes % 10 % (40-80) 10/15/19 10:45 CSF Reactive Lymphs 0 % 10/15/19 10:45 CSF Monocytes % 0 % (15-45) 10/15/19 10:45 CSF Eosinophils % 0 % 10/15/19 10:45 CSF Basophils 0 % 10/15/19 10:45 CSF Pathologist Review C 10/15/19 10:45 CSF Glucose 102 mg/dL 10/15/19 10:45 CSF Total Protein 166 mg/dL 10/15/19 10:45 CSF VDRL Nonreactive (Nonreactive) 10/15/19 10:45 Urine Opiates Screen Presumptive negative 10/15/19 Unknown Urine Methadone Screen Presumptive negative 10/15/19 Unknown Ur Barbiturates Screen Presumptive negative 10/15/19 Unknown Phenytoin 7.9 ug/mL (10.0-20.0) L 10/21/19 13:02 Ur Phencyclidine Scrn Presumptive negative 10/15/19 Unknown Ur Amphetamines Screen Presumptive negative 10/15/19 Unknown U Benzodiazepines Scrn Presumptive negative 10/15/19 Unknown Urine Cocaine Screen Presumptive negative 10/15/19 Unknown U Marijuana (THC) Screen Presumptive negative 10/15/19 Unknown Drugs of Abuse Note Disclamer 10/15/19 Unknown Plasma/Serum Alcohol < 0.01 % (0-0.07) 10/15/19 06:00 Active Medications - Current Medications Current Medications: Generic Name Dose Route Start Last Admin Trade Name Freq PRN Reason Stop Dose Admin Acetaminophen 650 mg 10/15/19 13:18 10/20/19 10:57 Tylenol PO 650 mg Q4H PRN Administration Pain MILD(1-3)/Fever >100.5/[place] Albuterol 2.5 mg 10/15/19 13:18 Proventil IH Q4HRT PRN Shortness Of Breath Enoxaparin Sodium 40 mg 10/15/19 22:00 10/21/19 21:21 Enoxaparin SUB-Q 40 mg QDAY@2200 MELLO Administration Acyclovir 500 mg/ Sodium 110 mls @ 100 mls/hr 10/22/19 00:00 10/21/19 23:27 Chloride IV 100 mls/hr Q12H MELLO Administration Protocol Lorazepam 2 mg 10/19/19 15:14 10/20/19 20:20 Ativan IV 2 mg Q3H PRN Administration Agitation Ondansetron HCl 4 mg 10/15/19 13:18 Zofran IV Q8H PRN Nausea And Vomiting Phenytoin 600 mg 10/20/19 22:00 10/21/19 21:20 Dilantin PO 600 mg QHS MELLO Administration Phenytoin 500 mg 10/22/19 11:15 Dilantin PO QAM MELLO Sertraline HCl 50 mg 10/21/19 12:00 10/22/19 09:23 Zoloft PO 50 mg DAILY MELLO Administration Sodium Chloride 10 ml 10/15/19 22:00 10/22/19 09:23 Sodium Chloride Flush Syringe 10 Ml IV 10 ml BID MELLO Administration Sodium Chloride 10 ml 10/15/19 13:18 Sodium Chloride Flush Syringe 10 Ml IV PRN PRN LINE FLUSH Nutrition/Malnutrition Assess - Dietary Evaluation Nutrition/Malnutrition Findings: Nutrition Notes Start: 10/20/19 10:47 Freq: Status: Active Protocol: Document 10/20/19 10:47 AP (Rec: 10/20/19 11:15 AP [email or web address]) Co-Sign 10/20/19 10:47 LM Nutrition Notes Need for Assessment generated from: LOS Initial or Follow up Brief Note Current Diagnosis Diabetes,Sepsis Other Pertinent Diagnosis epilepsy, CVA, encephalopathy Current Diet Regular Labs/Tests Na 148 Cr 1.7 BG 109 Pertinent Medications .5 NS at 100ml/hr Colace Height 6 ft Weight 96.2 kg Home Body Weight (kg) 80.90 BMI 28.8 Intake Prior to Admission Good Weight Status Overweight Subjective/Other Information Assess for LOS. Pt consumed 100% of bfast tray. Pt missing teeth. Burn Absent Trauma Absent Current % PO Good (75-100%) Minimum of two criteria No physical signs of malnutrition Nutrition Intervention Revisit per MD consult or patient Sign Off request:
[2019-10-22] MEDS: ACYCLOVIR 500 MG in SODIUM CHLORIDE 0.9% 100 ML IV SCH ×2 (12:42→23:59)
[2019-10-22] MEDS: ENOXAPARIN 40 MG/0.4 ML INJ SUB-Q SCH (23:03)
--- NOTE | 2019-10-23 10:23 | Progress Note ---
Assessment and Plan Cultures: 10/15/2019 CSF shows 1,250 WBC, 50,000 RBC, 90% neutrophils, glucose 102, protein 166. CSF VDRL: Nonreactive 10/15/2019 blood culture: No growth 10/15/2019 CSF culture: no growth after 72 hours CSF Crypto Ag: negative A/P: 49-year-old male with seizure disorder, field of the [facility], diabetes, prior CVA, resident of an assisted living facility was brought into the emergency room on 10/15/2019 after he was found to have multiple seizures. #Sepsis: infection v/s seizure related. ?meningitis v/s post ictal pleocytosis. CSF appears hemorrhagic, however, even with correction for traumatic tap CSF, the number of WBCs is high. Also, increased RBCs could be seen in HSV meningoencephalitis. Cultures have remained negative, mental status appears much improved, acute bacterial meningitis is unlikely. No other source of infection identified. #Seizure disorder: on meds. No more seizures. #NATHALY: renally dose abx. Monitor creatinine. Recs: - ok to stop acyclovir since HSV and VZV PCR are negative from the CSF. - Likely viral meningitis, ok to discharge without antibiotics. [facility] M: [phone] O: [phone] F: [phone] Subjective Date of service: 10/23/19 Principal diagnosis: Seizure and Possible HSV Meningitis Interval history: Afebrile, normal white count. Objective - Exam Narrative Exam: Constitutional: Alert, cooperative. No acute distress Head, Ears, Nose: Normocephalic, atraumatic. External ears, nose normal Eyes: Conjunctivae/corneas clear. No icterus. No ptosis. Neck: Supple, no meningeal signs Cardiovascular: S1, S2 normal. Respiratory: Good air entry, clear to auscultation bilaterally GI: Soft, non-tender; bowel sounds normal. No peritoneal signs Musculoskeletal: No pedal edema, no cyanosis. Skin: No rash or abscess Hem/Lymphatic: No palpable cervical or supraclavicular nodes. No lymphangitis Psych: no agitation Neurological: Awake, alert, answers basic questions - Constitutional Vitals: Vital Signs Temp Pulse Resp BP Pulse Ox 97.3 F L 77 18 121/80 93 10/22/19 21:54 10/23/19 04:15 10/22/19 21:54 10/23/19 04:15 10/23/19 04:15 Temperature -Last 24 Hours Temperature 97.3 F Temperature 97.7 F Temperature 97.8 F - Labs CBC & Chem 7: 10/22/19 Unknown 10/20/19 23:14
[2019-10-23] MEDS: SERTRALINE 50 MG TAB PO SCH (11:39)
[2019-10-23 12:54] VITALS: BP 116/77
--- NOTE | 2019-10-23 13:25 | Discharge Summary ---
Providers - Providers Date of Admission: 10/15/19 13:18 Date of discharge: 10/23/19 Attending physician: RUTH PIERRE 10/17/19 14:40 Consult to Physician [CONS] Routine Comment: Consulting Provider: JUDITH GREGORY Physician Instructions: evaluate IV ACYCLOVIR Reason For Exam: sepsis 10/18/19 05:17 Consult to PICC Line RN [CONS] Urgent Reason For Exam: un able to resite int pt need abx Type Line:: Midline 10/18/19 09:15 Consult to Physician [CONS] Routine Comment: Consulting Provider: JUDITH GREGORY Physician Instructions: Reason For Exam: Sepsis/Meningitis unlikely Need for Acyclovir and 10/19/19 08:19 PICC Line Insertion [Consult to PICC Line RN] [CONS] Stat Reason For Exam: poor venous access Type Line:: PICC 10/22/19 12:10 Physical Therapy Evaluation and Treat [CONS] Routine Comment: Reason For Exam: weakness [facility] Reason for admission: seizures/altered level of consciousness Condition: Fair Pertinent studies: CT head CT cervical spine Chest x-ray Lumbar puncture Hospital course: 49 YO Male Assisted Living Facility Resident who is currently a field of the [facility] with a [facility] appointed guardian with Seizure Disorder, DM, CVA with RHP, Nicotine Dependence presents to ED for evaluation. Pt is lethargic at time of my evaluation and unable to provide detailed history. Pt history taken from [facility] Staff, EMS, and ED staff. As per staff, the patient was found down and and having a seizure in a closet. Pt was noted to have experienced multiple seizures. EMS was notified, and upon arrival the patient was found to be in distress and transported to [facility]. Pt seen and evaluated in ED and found to have Encephalopathy with GCS:9 as well as fever to 102.6 and symptoms consistent with Sepsis, Acidosis and volume deplation. Pt initiated on Sepsis protocol and admitted to medical floor. QSOFA Score:3. No prior admission for review. All listed medication reconciled at time of admission. No further history obtainable. Pt is lethargic and confused, but has a positive gag reflex and is able to protect his airway. 49-year-old male patient with significant history of seizure disorder diabetes history of CVA assisted living facility resident was admitted with multiple episodes of seizures patient was also noted to have sepsis evaluated by ID underwent lumbar puncture and particularly managed with antibiotics and antivirals once the CSF analysis was negative for HSV and varicella-zoster virus PCR, antivirals have discontinued. 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 Check micro-lab tomorrow S/P LP,CSF analysis: CSF VDRL: Nonreactive Blood culture: No growth CSF culture: no growth after 72 hours CSF Crypto Ag: negative --Acute kidney injury; vasomotor nephropathy Current Visit: Yes Status: Acute Significantly improved, avoid nephrotoxins --Seizure disorder Current Visit: Yes Status: Acute Plan to address problem: Dilantin level, supportive care, Keppra loading dose, repeat dilantin level in AM. Resume prehospital AED therapy -- Encephalopathy Current Visit: Yes Status: Acute CT head, neuro check, aspiration precautions, seizure precautions, cmp, -- Hypernatremia Current Visit: Yes Status: Acute IVF resuscitation therapy, repeat bmp, -- Volume depletion Current Visit: Yes Status: Acute IVF resuscitation therapy, monitor uop q shift, -- DVT prophylaxis Current Visit: Yes Status: Acute SCD to BLE while in bed, prophylactic lovenox Disposition: DC-01 TO HOME OR SELFCARE Time spent for discharge: 32 min Core Measure Documentation - Palliative Care Palliative Care/ Comfort Measures: Not Applicable - Core Measures Any of the following diagnoses?: none Exam - Constitutional Vitals: Temp Pulse Resp BP Pulse Ox 98.0 F 78 20 116/77 91 10/23/19 11:48 10/23/19 11:48 10/23/19 11:48 10/23/19 11:48 10/23/19 11:48 General appearance: Present: no acute distress, well-nourished - EENT Eyes: Present: PERRL, EOM intact - Neck Neck: Present: supple, normal ROM - Respiratory Respiratory effort: normal Respiratory: bilateral: diminished, negative: rales, rhonchi, wheezing - Cardiovascular Rhythm: regular Heart Sounds: Present: S1 & S2 - Extremities Extremities: no ischemia, No edema - Abdominal General gastrointestinal: Present: soft, non-tender, non-distended, normal bowel sounds - Integumentary Integumentary: Present: clear, warm - Musculoskeletal Musculoskeletal: strength equal bilaterally - Psychiatric Psychiatric: appropriate mood/affect, cooperative - Neurologic Neurologic: CNII-XII intact, moves all extremities Plan Activity: advance as tolerated, no driving until cleared by PCP, fall precautions, other (seizure precautions) Diet: regular Additional Instructions: Fall precautions. seizure precautions. Advised to see private neurologist in 1-2 weeks Follow up with: ANGEL BRUNO MD [Primary Care Provider] - 3-5 Days AGATHA SHEARER MD [Staff Physician] - 7 Days
== END 2019-10-23 16:25 | disposition home or self-care (01) | DRG 871 ==
LOC: ED 05:19 → 3A 13:18
PROVIDERS: ADMIT Internal Medicine; ATTEND Internal Medicine
PROC: 009U3ZX Drainage of Spinal Canal, Percutaneous Approach, Diagnostic (ICD-10-PCS; 2019-10-15)
PROC: 06HY33Z Insertion of Infusion Device into Lower Vein, Percutaneous Approach (ICD-10-PCS; principal; 2019-10-21)
DX: A41.9 Sepsis, unspecified organism (principal); G93.40 Encephalopathy, unspecified; N17.0 Acute kidney failure with tubular necrosis; B00.4 Herpesviral encephalitis; B00.3 Herpesviral meningitis; G40.909 Epilepsy, unspecified, not intractable, without status epilepticus; E87.0 Hyperosmolality and hypernatremia; E11.9 Type 2 diabetes mellitus without complications; F17.200 Nicotine dependence, unspecified, uncomplicated; E86.9 Volume depletion, unspecified; I69.351 Hemiplegia and hemiparesis following cerebral infarction affecting right dominant side; Z79.899 Other long term (current) drug therapy; Z72.89 Other problems related to lifestyle
CPT/HCPCS: 36415; 70450; 71045; 72125; 80048; 80053; 80185; 80307; 80320; 81001; 82140; 82947; 82962; 83735; 84160; 85007; 85025; 86403; 86592; 87040; 87116; 87498; 87799; 89051; 93005; 93010; 94640; 94760; 99292; G0378; A6250; G0480; J0133; J0692; J0696; J1650; J1953; J2060; J2704; J3370; J7030; J7040; J7050

== ENCOUNTER 2020-02-03 16:50 | Emergency (ER) | payer MEDICAID ==
[2020-02-03] MEDS ORDERED: MECLIZINE 25 MG TAB PO ONE (20:29)
--- NOTE | 2020-02-03 20:34 | Emergency Department Report ---
ED Dizziness HPI - General Chief Complaint: Dizziness Stated Complaint: DIZZY/HEADACHE/DISORIENTED Time Seen by Provider: 02/03/20 20:25 Source: patient Mode of arrival: Ambulatory Limitations: No Limitations - History of Present Illness Initial Comments: Patient is 49 years old male with history of seizure on Dilantin, history of CVA with complete resolution. Patient presented to the ER complaining of dizziness started last night. Patient stated that he feel room spinning. He also stated that he is hearing noises in his ear. Patient stated that he fell yesterday and hit his head and he is having headache since then. Patient denies any neck p ain, back pain, weakness numbness or tingling sensation. No bowel or bladder incontinence. Patient also denies any fever chills. No chest pain or shortness of breath. MD Complaint: dizziness -: Last night Timing: sudden onset Description: sense of movement, "room spinning" History of Same: No Severity: moderate Improves With: remaining still Worsens With: position Associated Symptoms: denies other symptoms - Related Data Home Medications Medication Instructions Recorded Confirmed Last Taken Phenytoin Sodium Extended 400 mg PO QAM 10/15/19 10/18/19 Unknown Sertraline HCl [Zoloft] 50 mg PO DAILY 10/15/19 10/18/19 Unknown Phenytoin Sodium Extended 600 mg PO QPM 10/18/19 10/18/19 Unknown Previous Rx's Medication Instructions Recorded Last Taken Type Phenytoin [Dilantin] 100 mg PO Q8HR #90 capsule 11/30/19 Unknown Rx Allergies Allergy/AdvReac Type Severity Reaction Status Date / Time No Known Allergies Allergy Verified 02/03/20 16:56 ED Review of Systems ROS: Stated complaint: DIZZY/HEADACHE/DISORIENTED Other details as noted in HPI Comment: All other systems reviewed and negative Constitutional: denies: chills, fever Cardiovascular: denies: chest pain, palpitations, dyspnea on exertion Gastrointestinal: denies: abdominal pain, nausea, vomiting, diarrhea, constipation, hematemesis, melena, hematochezia Musculoskeletal: denies: back pain Neurological: headache, vertigo. denies: weakness, numbness, paresthesias, confusion, abnormal gait ED Past Medical Hx - Past Medical History Previous Medical History?: Yes Hx CVA: Yes (right sided weakness) Hx Diabetes: Yes Hx Deep Vein Thrombosis: No Hx Seizures: Yes - Surgical History Past Surgical History?: Yes Hx Pacemaker: No Hx Internal Defibrillator: No Additional Surgical History: head surgery - Social History Smoking Status: Current Every Day Smoker Substance Use Type: None - Medications Home Medications: Home Medications Medication Instructions Recorded Confirmed Last Taken Type Phenytoin Sodium Extended 400 mg PO QAM 10/15/19 10/18/19 Unknown History Sertraline HCl [Zoloft] 50 mg PO DAILY 10/15/19 10/18/19 Unknown History Phenytoin Sodium Extended 600 mg PO QPM 10/18/19 10/18/19 Unknown History Phenytoin [Dilantin] 100 mg PO Q8HR #90 capsule 11/30/19 Unknown Rx ED Physical Exam - General Limitations: No Limitations General appearance: alert, in no apparent distress - Head Head exam: Present: atraumatic, normocephalic, normal inspection - Eye Eye exam: Present: normal appearance, PERRL - ENT ENT exam: Present: normal exam, normal orophraynx, mucous membranes moist - Neck Neck exam: Present: normal inspection, full ROM. Absent: tenderness, meningismus, lymphadenopathy, thyromegaly - Respiratory Respiratory exam: Present: normal lung sounds bilaterally - Cardiovascular Cardiovascular Exam: Present: regular rate, normal rhythm, normal heart sounds - GI/Abdominal GI/Abdominal exam: Present: soft, normal bowel sounds. Absent: distended, tenderness, guarding, rebound, rigid, organomegaly, mass, bruit, pulsatile mass, hernia - Extremities Exam Extremities exam: Present: normal inspection, full ROM, normal capillary refill. Absent: tenderness, pedal edema, calf tenderness - Back Exam Back exam: Present: normal inspection, full ROM. Absent: CVA tenderness (R), CVA tenderness (L), muscle spasm, paraspinal tenderness, vertebral tenderness - Neurological Exam Neurological exam: Present: alert, oriented X3, CN II-XII intact, normal gait, reflexes normal. Absent: motor sensory deficit - Psychiatric Psychiatric exam: Present: normal mood. Absent: suicidal ideation - Skin Skin exam: Present: warm, intact, normal color ED Course Vital Signs 02/03/20 16:54 Temperature 97.6 F Pulse Rate 81 Respiratory 18 Rate Blood Pressure 110/77 O2 Sat by Pulse 96 Oximetry ED Medical Decision Making - Lab Data Result diagrams: 02/03/20 20:51 02/03/20 20:51 - Radiology Data Radiology results: report reviewed - Medical Decision Making Patient is 49 years old male with history of seizure on Dilantin, history of CVA with complete resolution. Patient presented to the ER complaining of dizziness started last night. Patient stated that he feel room spinning. He also stated that he is hearing noises in his ear. Patient stated that he fell yesterday and hit his head and he is having headache since then. Patient denies any neck pain, back pain, weakness numbness or tingling sensation. No bowel or bladder incontinence. Patient also denies any fever chills. No chest pain or shortness of breath. Patient remained stable in the ER. Labs reviewed and is unremarkable. Phenytoin level is low 0.8. Patient given Dilantin p.o. CT brain is negative for acute finding. Patient given meclizine in the ER and stated that he is feeling much better. Patient advised to follow-up with his primary care physician in the next 2 to 3 days and to return to the ER if he develop any new symptoms. Critical care attestation.: If time is entered above; I have spent that time in minutes in the direct care of this critically ill patient, excluding procedure time. ED Disposition Clinical Impression: Dizziness, Seizure Disposition: DC-01 TO HOME OR SELFCARE Is pt being admited?: No Condition: Stable Instructions: Dizziness (ED) Referrals: PRIMARY CARE, [Primary Care Provider] - 3-5 Days
[2020-02-03 21:14] LABS: Basophils # (Auto) 0.1 K/mm3 (0.0-0.1); Basophils % (Auto) 0.8 % (0.0-1.8); Eosinophils % (Auto) 13.2 % (0.0-4.3); Hematocrit 46.7 % (35.5-45.6); Hemoglobin 15.8 gm/dl (11.8-15.2); Lymphocytes # (Auto) 2.7 K/mm3 (1.2-5.4); Lymphocytes % (Auto) 34.4 % (13.4-35.0); Mean Corpuscular HGB Conc 34 % (32-34); Mean Corpuscular Volume 93 fl (84-94); Monocytes # (Auto) 0.7 K/mm3 (0.0-0.8); Monocytes % (Auto) 8.9 % (0.0-7.3); Platelet Count 303 K/mm3 (140-440); Red Cell Distribution Width 13.1 % (13.2-15.2)
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
[2020-02-03 21:30] LABS: BUN/Creatinine Ratio 20; Blood Urea Nitrogen 16 mg/dL (9-20); Calcium 9.6 mg/dL (8.4-10.2); Hemolysis Index 28
[2020-02-03] MEDS ORDERED: PHENYTOIN 100 MG CAPSULE.ER PO ONE (21:57)
[2020-02-03 22:20] VITALS: BP 140/89
== END 2020-02-03 22:17 | disposition home or self-care (01) ==
LOC: ED 16:50
DX: R42 Dizziness and giddiness (principal); R56.9 Unspecified convulsions; E11.9 Type 2 diabetes mellitus without complications; F17.200 Nicotine dependence, unspecified, uncomplicated; Z98.890 Other specified postprocedural states; Z86.73 Personal history of transient ischemic attack (TIA), and cerebral infarction without residual deficits; Z79.899 Other long term (current) drug therapy
CPT/HCPCS: 36415; 70450; 80048; 80185; 82962; 85025

== ENCOUNTER 2020-02-05 16:23 | Emergency (ER) | payer MEDICAID ==
[2020-02-05] MEDS ORDERED: levETIRAcetam 1000 MG/NS 0.75% 1,000 MG/100 ML BAG IV ONE (17:51)
[2020-02-05] MEDS ORDERED: LORazepam 2 MG/ML VIAL ONE (18:01)
[2020-02-05] MEDS ORDERED: PHENYTOIN 100 MG CAPSULE.ER PO ONE ×3 (18:24→21:00)
[2020-02-05] MEDS ORDERED: LORazepam 1 MG TAB PO ONE (18:40)
[2020-02-05] MEDS ORDERED: LORazepam 2 MG/ML VIAL IM ONE (18:41)
[2020-02-05 18:56] LABS: Mean Corpuscular HGB Conc 33 % (32-34); Mean Corpuscular Volume 95 fl (84-94); Red Blood Count 5.07 M/mm3 (3.65-5.03); Red Cell Distribution Width 13.2 % (13.2-15.2)
[2020-02-05 18:57] LABS: Platelet Count 273 K/mm3 (140-440)
[2020-02-05 18:58] LABS: BUN/Creatinine Ratio 17; Basophils # (Auto) 0.1 K/mm3 (0.0-0.1); Basophils % (Auto) 0.9 % (0.0-1.8); Blood Urea Nitrogen 17 mg/dL (9-20); Calcium 9.3 mg/dL (8.4-10.2); Eosinophils # (Auto) 0.2 K/mm3 (0.0-0.4); Hemolysis Index 32; Lymphocytes # (Auto) 2.3 K/mm3 (1.2-5.4); Lymphocytes % (Auto) 14.7 % (13.4-35.0); Monocytes # (Auto) 0.7 K/mm3 (0.0-0.8); Monocytes % (Auto) 4.6 % (0.0-7.3)
[2020-02-05 21:42] LABS: BUN/Creatinine Ratio 21; Blood Urea Nitrogen 15 mg/dL (9-20); Calcium 9.1 mg/dL (8.4-10.2); Hemolysis Index 127
--- NOTE | 2020-02-05 23:00 | Emergency Department Report ---
<DEYSI CORTES - Last Filed: 02/07/20 05:17> ED Seizure HPI - General Chief Complaint: Seizure Stated Complaint: SEIZURE Time Seen by Provider: 02/05/20 17:49 - Related Data Home Medications Medication Instructions Recorded Confirmed Last Taken Phenytoin Sodium Extended 400 mg PO QAM 10/15/19 10/18/19 Unknown Sertraline HCl [Zoloft] 50 mg PO DAILY 10/15/19 10/18/19 Unknown Phenytoin Sodium Extended 600 mg PO QPM 10/18/19 10/18/19 Unknown Previous Rx's Medication Instructions Recorded Last Taken Type Meclizine [Antivert] 25 mg PO TID PRN #20 tablet 02/03/20 Unknown Rx Phenytoin [Dilantin] 100 mg PO Q8HR #90 capsule 02/05/20 Unknown Rx Allergies Allergy/AdvReac Type Severity Reaction Status Date / Time No Known Allergies Allergy Verified 02/03/20 16:56 ED Past Medical Hx - Medications Home Medications: Home Medications Medication Instructions Recorded Confirmed Last Taken Type Phenytoin Sodium Extended 400 mg PO QAM 10/15/19 10/18/19 Unknown History Sertraline HCl [Zoloft] 50 mg PO DAILY 10/15/19 10/18/19 Unknown History Phenytoin Sodium Extended 600 mg PO QPM 10/18/19 10/18/19 Unknown History Meclizine [Antivert] 25 mg PO TID PRN #20 tablet 02/03/20 Unknown Rx Phenytoin [Dilantin] 100 mg PO Q8HR #90 capsule 02/05/20 Unknown Rx ED Course - Reevaluation(s) Reevaluation #2: 02/07/20 05:18 I was informed by nursing staff that patient exhibited seizure activity. Patient was drowsy upon my evaluation. No evidence of continued seizure activity. Reviewed electronic medical record. Mr. Rodriguez has a history of seizure disorder. Current Dilantin level not therapeutic. I have ordered a fosphenytoin load. I have also ordered p.o. Dilantin home doses. He is currently awaiting placement to a alf facility or personal alf. ED Medical Decision Making - Lab Data Result diagrams: 02/05/20 18:14 02/05/20 21:08 ED Disposition Clinical Impression: Seizure, Noncompliance with medication regimen, Subtherapeutic serum dilantin level Disposition: DC-01 TO HOME OR SELFCARE Condition: Stable Instructions: Recurrent Seizures Adult (ED) Additional Instructions: Take the medication as prescribed. Follow-up with your doctor or doctor/clinic provided. Return if symptoms worsen as indicated by your discharge instruct ions. Prescriptions: Phenytoin [Dilantin] 100 mg PO Q8HR #90 capsule Referrals: PRIMARY CARE, [Primary Care Provider] - 3-5 Days MARYBEL MALDONAOD MD [Staff Physician] - 3-5 Days (Primary care doctor) MARIAM HUGGINS MD [Staff Physician] - 3-5 Days (Neurologist) <GERRY PEREZ - Last Filed: 02/09/20 09:22> ED Seizure HPI - General Source: patient Mode of arrival: Stretcher Limitations: No Limitations - History of Present Illness Initial Comments: 49-year-old male with a past medical history of seizures and previous CVA, hypertension, diabetes presents to the hospital with complaints seizure. Patient apparently states he was compliant with medications. Patient had another seizure in the ED prior to my evaluation and was postictal. Patient was just here on February 02 with a subtherapeutic Dilantin level and received a p.o. Dilantin dose prior to discharge. ED Review of Systems ROS: Stated complaint: SEIZURE Other details as noted in HPI Comment: Unobtainable due to pts medical conditions ED Past Medical Hx - Past Medical History Hx CVA: Yes (right sided weakness) Hx Diabetes: Yes Hx Deep Vein Thrombosis: No Hx Seizures: Yes Hx Asthma: Yes - Surgical History Hx Pacemaker: No Hx Internal Defibrillator: No Additional Surgical History: head surgery - Social History Smoking Status: Current Every Day Smoker Substance Use Type: None ED Physical Exam - General Limitations: No Limitations - Other Other exam information: General: Altered post Head: Atraumatic Eyes: normal appearance ENT: Moist mucous membranes, mild abrasion to inner lower lip without wenceslao laceration or active bleeding Neck: Normal appearance, no midline tenderness Chest: Clear to auscultation bilaterally CV: Regular rate and rhythm Abdomen: Soft, normal bowel sounds, nontender, nondistended, no rebound or guarding Back: Normal inspection Extremity: Normal inspection, full range of motion Neuro: Altered post ictal, moves all extremities and requiring restraints for IV attempt Skin: No rash ED Course Vital Signs 02/05/20 02/05/20 02/05/20 17:09 18:00 19:35 Temperature 99.3 F Pulse Rate 109 H 121 H Respiratory 16 16 16 Rate Blood Pressure 126/94 Blood Pressure 121/85 [Right] O2 Sat by Pulse 96 94 Oximetry 02/05/20 02/06/20 02/07/20 21:09 07:01 06:00 Temperature 99 F Pulse Rate 85 112 H Respiratory 18 18 Rate Blood Pressure Blood Pressure 122/72 116/71 [Right] O2 Sat by Pulse 97 97 Oximetry 02/07/20 02/07/20 02/07/20 07:12 07:15 07:28 Temperature Pulse Rate 109 H 98 H 92 H Respiratory 16 14 14 Rate Blood Pressure 115/65 Blood Pressure 115/65 [Right] O2 Sat by Pulse 99 96 96 Oximetry 02/07/20 02/07/20 02/07/20 07:30 07:45 08:00 Temperature Pulse Rate 93 H 91 H 78 Respiratory 13 11 L 16 Rate Blood Pressure 121/64 115/72 125/72 Blood Pressure [Right] O2 Sat by Pulse 98 97 97 Oximetry 02/07/20 02/07/20 02/07/20 08:18 08:30 08:45 Temperature Pulse Rate 100 H 93 H 98 H Respiratory Rate Blood Pressure 125/72 127/75 107/48 Blood Pressure [Right] O2 Sat by Pulse 96 94 Oximetry 02/07/20 02/07/20 02/07/20 09:00 09:15 19:30 Temperature 98.5 F Pulse Rate 113 H 94 H 94 H Respiratory 18 Rate Blood Pressure 107/48 115/70 Blood Pressure 124/84 [Right] O2 Sat by Pulse 96 Oximetry 02/08/20 02/08/20 02/08/20 01:38 07:32 13:00 Temperature Pulse Rate 85 87 94 H Respiratory 18 17 18 Rate Blood Pressure Blood Pressure 117/80 128/68 134/63 [Right] O2 Sat by Pulse 100 97 98 Oximetry 02/08/20 19:05 Temperature Pulse Rate 96 H Respiratory 18 Rate Blood Pressure Blood Pressure 134/65 [Right] O2 Sat by Pulse 98 Oximetry - Reevaluation(s) Reevaluation #1: 02/05/20 23:02 Patient is currently alert and denies pain. He is still drowsy. Is due for his third dose of p.o. Dilantin at 1 AM. Case management consult will be requested in a.m. due to patient's repeated noncompliance and questionable mental health/mental development issue ED Medical Decision Making - Lab Data Result diagrams: 02/05/20 18:14 02/05/20 21:08 Lab Results 02/05/20 02/05/20 02/05/20 Range/Units 18:14 18:14 18:14 WBC 15.6 H (4.5-11.0) K/mm3 RBC 5.07 H (3.65-5.03) M/mm3 Hgb 16.0 H (11.8-15.2) gm/dl Hct 48.0 H (35.5-45.6) % MCV 95 H (84-94) fl MCH 32 (28-32) pg MCHC 33 (32-34) % RDW 13.2 (13.2-15.2) % Plt Count 273 (140-440) K/mm3 Lymph % (Auto) 14.7 (13.4-35.0) % Winkler % (Auto) 4.6 (0.0-7.3) % Eos % (Auto) 1.0 (0.0-4.3) % Baso % (Auto) 0.9 (0.0-1.8) % Lymph # 2.3 (1.2-5.4) K/mm3 Winkler # 0.7 (0.0-0.8) K/mm3 Eos # 0.2 (0.0-0.4) K/mm3 Baso # 0.1 (0.0-0.1) K/mm3 Seg Neutrophils % 78.8 H (40.0-70.0) % Seg Neutrophils # 12.3 H (1.8-7.7) K/mm3 Sodium 137 (137-145) mmol/L Potassium 4.1 (3.6-5.0) mmol/L Chloride 98.1 (98-107) mmol/L Carbon Dioxide 13 L D (22-30) mmol/L Anion Gap 30 mmol/L BUN 17 (9-20) mg/dL Creatinine 1.0 (0.8-1.5) mg/dL Estimated GFR > 60 ml/min BUN/Creatinine Ratio 17 % Glucose 137 H (75-100) mg/dL Calcium 9.3 (8.4-10.2) mg/dL Magnesium 2.30 (1.7-2.3) mg/dL Phenytoin 1.6 L (10.0-20.0) ug/mL 02/05/20 Range/Units 21:08 WBC (4.5-11.0) K/mm3 RBC (3.65-5.03) M/mm3 Hgb (11.8-15.2) gm/dl Hct (35.5-45.6) % MCV (84-94) fl MCH (28-32) pg MCHC (32-34) % RDW (13.2-15.2) % Plt Count (140-440) K/mm3 Lymph % (Auto) (13.4-35.0) % Winkler % (Auto) (0.0-7.3) % Eos % (Auto) (0.0-4.3) % Baso % (Auto) (0.0-1.8) % Lymph # (1.2-5.4) K/mm3 Winkler # (0.0-0.8) K/mm3 Eos # (0.0-0.4) K/mm3 Baso # (0.0-0.1) K/mm3 Seg Neutrophils % (40.0-70.0) % Seg Neutrophils # (1.8-7.7) K/mm3 Sodium 133 L (137-145) mmol/L Potassium 4.7 (3.6-5.0) mmol/L Chloride 99.1 (98-107) mmol/L Carbon Dioxide 18 L (22-30) mmol/L Anion Gap 21 mmol/L BUN 15 (9-20) mg/dL Creatinine 0.7 L (0.8-1.5) mg/dL Estimated GFR > 60 ml/min BUN/Creatinine Ratio 21 % Glucose 120 H (75-100) mg/dL Calcium 9.1 (8.4-10.2) mg/dL Magnesium (1.7-2.3) mg/dL Phenytoin (10.0-20.0) ug/mL - Medical Decision Making Patient had a seizure in the ED and prior to arrival was subtherapeutic Dilantin level. Patient received oral load in ED given that he is a very difficult IV access patient. Patient's initial anion gap acidosis improved and likely secondary to initial seizure/lactic acidosis that resolved spontaneously. Patient states he is compliant with his medications which is unlikely given low Dilantin level. Case management consult requested in a.m. - Differential Diagnosis Seizure, medication noncompliance Critical Care Time: No Critical care attestation.: If time is entered above; I have spent that time in minutes in the direct care of this critically ill patient, excluding procedure time. ED Disposition Is pt being admited?: No Does the pt Need Aspirin: No
[2020-02-06] MEDS ORDERED: PHENYTOIN 100 MG CAPSULE.ER PO ONE (01:00)
[2020-02-07] MEDS ORDERED: LORazepam 2 MG/ML VIAL ONE (05:12)
[2020-02-07] MEDS ORDERED: LORazepam 2 MG/ML VIAL IM STA (05:13)
[2020-02-07] MEDS ORDERED: levETIRAcetam 1000 MG/NS 0.75% 1,000 MG/100 ML BAG IV ONE (05:15)
[2020-02-07] MEDS ORDERED: FOSPHENYTOIN 500 MG PE/10 ML INJ IV ONE (05:17)
[2020-02-07] MEDS ORDERED: [UNRECOGNIZED DRUG - OTHER] IV ONE (06:00)
[2020-02-07] MEDS ORDERED: SODIUM CHLORIDE IV ONE (06:00)
[2020-02-07] MEDS ORDERED: FOSPHENYTOIN IV ONE (06:00)
[2020-02-07] MEDS ORDERED: PHENYTOIN 100 MG CAPSULE.ER PO SCH (22:00)
--- NOTE | 2020-02-08 11:58 | XRay Report ---
CHEST 1 VIEW INDICATION / CLINICAL INFORMATION: medical clearance. COMPARISON: 10/15/2019. FINDINGS: SUPPORT DEVICES: None. HEART / MEDIASTINUM: No significant abnormality. LUNGS / PLEURA: No significant pulmonary or pleural abnormality. No pneumothorax. ADDITIONAL FINDINGS: No significant additional findings. IMPRESSION: 1. No acute findings. Signer Name: Nico Montgomery MD Signed: 02/08/2020 11:54 AM Workstation Name: [id number]
[2020-02-08 19:05] VITALS: BP 134/65
== END 2020-02-08 19:28 | disposition home or self-care (01) ==
LOC: ED 16:23
DX: G40.909 Epilepsy, unspecified, not intractable, without status epilepticus (principal); R89.2 Abnormal level of other drugs, medicaments and biological substances in specimens from other organs, systems and tissues; Z91.14 Patient's other noncompliance with medication regimen; Z79.899 Other long term (current) drug therapy
CPT/HCPCS: 36415; 71045; 80048; 80185; 82962; 83735; 85025; 96365; 96372; 99285; J2060; Q2009